=== PATIENT | male | born 1985 | race Caucasian/White ===

== ENCOUNTER 2016-06-07 22:45 | Emergency (ER) | payer SELFPAY ==
[~2016-06-07] VITALS: Ht 177.8 cm; Wt 72.6 kg
[~2016-06-07 22:45] MED LIST: ADDR10T PO; ALPR1TAB2 PO; CEPH500C PO; CLON1TAB36 PO; HYOS0.1217 PO; TRM50T PO
--- OUTSIDE RECORDS SUMMARY | 2016-06-07 22:51 | XMS REPORT ---
Author Author LAUREN CAMPOS [facility] eClinicalWorks Address Unknown Phone Unavailable Care Team Providers Care [employer]ting [employer] Name Role Phone LAUREN CAMPOS CP Unavailable Allergies, Adverse Reactions, Alerts Substance Reaction Event Type N.K.D.A. Info Not Available Non Drug Allergy Problems Problem Type Condition Code Onset Dates Condition Status Problem Family history of diabetes mellitus V18.0 Active Problem Dysthymic disorder 300.4 Active Problem Family history of other cardiovascular diseases V17.49 Active Problem Routine general medical examination at health care facility V70.0 Active Assessment Dental examination Z01.20 Active Medications Medication Code System Code Instructions Start Date End Date Status Dosage [place] [facility] [address]-66 5-325 MG Orally every 6 hrs October 13, 2015September 1 tablet as needed Clindamycin HCl [facility] [address]-56 150 MG Orally every 6 hrs October 13, 2015 Oct 20, 2015 1 capsule Procedures Procedure Coding System Code Date INTRAORL-PERIAPICAL 1 FILM 77726 CPT-4 D0220 October 13, 2015 Billing Notes on claim CPT-4 EC109 October 13, 2015 LTD ORAL EVALUATION - PROBLEM FOCUS CPT-4 D0140 October 13, 2015 Vital Signs Date/Time: October 13, 2015 Blood Pressure Diastolic 108 mmHg Blood Pressure Systolic 161 mmHg Height 70.5 in Results No Known Results Summary Purpose eClinicalWorks Submission
[2016-06-07] MEDS ORDERED: morphine INJ 10 MG/ML 1ML (SYR OR VIAL) IM STA (23:48)
[2016-06-07] MEDS ORDERED: TETANUS,DIPTH,PERTUSS P/F (BOOSTRIX) 0.5 ML VIAL IM STA (23:48)
[2016-06-07] MEDS ORDERED: RX-TRIMETH/SULFA. 160-800 MG (BACTRIM DS) TAB PPK#2 PO STA (23:49)
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
[2016-06-08] MEDS ORDERED: HYDR-3812 PO (00:05)
[2016-06-08] MEDS ORDERED: SULF1TAB35 PO (00:05)
[2016-06-08] MEDS ORDERED: RX-TRAMADOL 50 MG (ULTRAM) TAB PPK#4 PO STA (00:45)
[2016-06-08 01:06] VITALS: BP 124/79
--- NOTE | 2016-06-08 08:16 | Diagnostic Imaging Report ---
EXAMINATION: 3 views of the right hand. INDICATION: Injury to the fifth finger. FINDINGS: There is focal hypodensity along the tip of the fifth finger which could be related to the dressing or a 1 mm metallic foreign body deep to the skin or to the nail. There is otherwise no significant soft tissue or osseous abnormality. No fracture or dislocation. IMPRESSION: No fracture seen. 1 mm mild density at the tip of the fifth finger probably relates to a non metallic foreign body near the nail/skin or possibly outside the body. Correlate with physical exam. Dictated by: Dictated on workstation # [id number]
== END 2016-06-08 01:00 | disposition home or self-care (01) ==
LOC: EDUNIT# 22:45 → ER 22:47
DX: L03.113 Cellulitis of right upper limb (principal); S60.416A Abrasion of right little finger, initial encounter; Z23 Encounter for immunization; F17.210 Nicotine dependence, cigarettes, uncomplicated; X58.XXXA Exposure to other specified factors, initial encounter; Y99.8 Other external cause status
CPT/HCPCS: 73130; 90471; 90715; 96372

== ENCOUNTER 2016-06-08 17:26 | Emergency (ER) | payer SELFPAY ==
[~2016-06-08] VITALS: Ht 177.8 cm; Wt 74.8 kg
[~2016-06-08 17:26] MED LIST changes: +HYDR-3812 PO; +SULF1TAB35 PO
--- NOTE | 2016-06-08 17:44 | ED Suture Removal/Wound Check ---
Suture/Wound Re-check Suture Removal/Wound Recheck : Progress Patient presents to the emergency department as instructed by this examiner yesterday for wound check. Patient denies any new needs or complaints. Physical Exam Vital Signs Vital Sign - Last 12Hours 06/08/16 06/08/16 17:34 18:13 Temp 95.5 Pulse 78 Resp 16 B/P (MAP) 120/63 Pulse Ox 98 O2 Delivery Room Air Capillary Refill : General Appearance: WD/WN, no apparent distress Neurologic/Psychiatric: alert, normal mood/affect, oriented x 3 Skin: other (partial skin avulsion of the right volar 5th finger. Improved erythema and warmth noted. ) Skin Problem Location: upper extremities Skin Problem Character: other (partial skin avulsion of the right volar 5th finger. Improved erythema and warmth noted. ) Departure Communication Progress Notes Patient seen and evaluated. Plan for discharge to home. Impression Impression: Primary Impression: Cellulitis Qualified Codes: L03.011 - Cellulitis of right finger Additional Impression: Avulsion of skin of finger Qualified Codes: S61.209D - Unspecified open wound of unspecified finger without damage to nail, subsequent encounter Disposition: 01 HOME, SELF-CARE Condition: Improved Departure-Patient Inst. Decision time for Depature: 17:57 Referrals: NO,LOCAL PHYSICIAN (PCP/Family) Primary Care Physician Patient Instructions: Wound Care (DC) Add. Discharge Instructions: All discharge instructions reviewed with patient and/or family. Voiced understanding. Continue current medications. Elevate the right hand above the level of the heart as much as possible. Shower with antibacterial soap, pat dry , apply triple antibiotic ointment twice daily for 5 days and cover with a bandage. Continue current orders and medications as instructed last night in the emergency department. Return to the emergency department next Tuesday, Tuesday, or Tuesday for wound recheck. Follow-up with your family doctor for recheck if needed. Return to the emergency department for worsened symptoms or any other concerns. LIONEL SEWELL Jun 08, 2016 17:44
[2016-06-08 18:13] VITALS: BP 120/63
== END 2016-06-08 18:13 | disposition home or self-care (01) ==
LOC: EDUNIT# 17:26 → ER 17:27
DX: L03.011 Cellulitis of right finger (principal)

== ENCOUNTER 2016-08-04 23:22 | Emergency (ER) | payer SELFPAY ==
[~2016-08-04] VITALS: Ht 177.8 cm; Wt 74.8 kg
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
[2016-08-05] MEDS ORDERED: NAPROXEN 250 MG (NAPROSYN) TABLET PO ONE (00:30)
[2016-08-05] MEDS ORDERED: DICL50TA6 PO (00:35)
[2016-08-05 00:44] VITALS: BP 106/61
--- NOTE | 2016-08-05 08:11 | Diagnostic Imaging Report ---
Three views of the right knee. INDICATION: Injury FINDINGS: There is no fracture, dislocation or radiopaque foreign body. Moderate amount of suprapatellar effusion is seen, however. IMPRESSION: Moderate suprapatellar effusion. No fracture seen. Dictated by: Dictated on workstation # [id number]
== END 2016-08-05 00:55 | disposition home or self-care (01) ==
LOC: EDUNIT# 23:22 → ER 23:26
DX: S89.91XA Unspecified injury of right lower leg, initial encounter (principal); M25.461 Effusion, right knee; F17.210 Nicotine dependence, cigarettes, uncomplicated; V86.99XA Unspecified occupant of other special all-terrain or other off-road motor vehicle injured in nontraffic accident, initial encounter; Y99.8 Other external cause status
CPT/HCPCS: 73562; 99283

== ENCOUNTER 2017-10-08 20:12 | Emergency (ER) | payer SELFPAY ==
[~2017-10-08] VITALS: Ht 167.6 cm; Wt 74.8 kg
[~2017-10-08 20:12] MED LIST changes: +ACHD5005 PO; +DICL50TA6 PO; -HYDR-3812 PO
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
[2017-10-08] MEDS ORDERED: FLUORESCEIN (FLUOR-I-STRIPS) 1 MG STRP OU ONE (20:30)
[2017-10-08] MEDS ORDERED: BSS 15 ML IR ONE (20:30)
[2017-10-08] MEDS ORDERED: TETRACAINE 0.5% OPHTH SOLN 4 ML BTL (SINGLE DOSE ONLY) OU ONE (20:30)
[2017-10-08] MEDS ORDERED: RX-GENTAMICIN 0.3% OP OINT 3.5 GM TUBE OP STA (20:36)
--- NOTE | 2017-10-08 20:42 | ED EENT ---
History of Present Illness General Chief Complaint: Eye Problems Stated Complaint: SOMETHING IN L EYE Source: patient Exam Limitations: no limitations History of Present Illness Date Seen by Provider: Oct 08, 2017 Time Seen by Provider: 20:37 Initial Comments to ER with sensation of foreign body in the left eye. He was grinding on Tuesday10/05/17. He did not feel anything it his eye but he noticed some discomfort in the eye later that day. He does wear contact lenses and has taken them out since it started hurting. He follows with Dr. Stubbs, career development director. He's had corneal abrasions before but this feels different, he states tthe previous corneal abrasions never lasted this long. he's been using some of his grandmorphCARD's prescription eyedrops but doesn't know what the name of it was. He believes they were for pain control. Timing/Duration: abrupt Severity: moderate Location: eye (L) Allergies and Home Medications Allergies Coded Allergies: No Known Drug Allergies (Unverified , 08/16/09) Home Medications Diclofenac Sodium 50 Mg Tablet.dr, 50 MG PO Q6H PRN for KNEE PAIN Prescribed by: MELINDA REYES on 08/05/16 0035 Patient Home Medication List Home Medication List Reviewed: Yes Review of Systems Constitutional: see HPI Eyes: See HPI, Foreign Body Sensation, Inflammation, Pain Ears: No Symptoms Reported Nose: no symptoms reported Mouth: no symptoms reported Throat: no symptoms reported Respiratory: see HPI Cardiovascular: no symptoms reported Musculoskeletal: no symptoms reported Past Abqnqwu-Shgswx-Yaobyi Hx Patient Social History Alcohol Beverage of Choice: Beer Type Used: Cigarettes 2nd Hand Smoke Exposure: Yes Recent Foreign Travel: No Contact w/Someone Who Travel: No Recent Hopitalizations: No Immunizations Up To Date Tetanus Booster (TDap): More than 5yrs PED Vaccines UTD: Yes Seasonal Allergies Seasonal Allergies: No Past Medical History Surgeries: Yes (RIGHT HAND) Orthopedic Respiratory: No Cardiac: No Neurological: Yes Concussion Reproductive Disorders: No Gastrointestinal: No Musculoskeletal: Yes (RIGHT SHOULDER AC SEPARATION) Fractures Endocrine: No Cancer: No Psychosocial: Yes Anxiety Integumentary: No Blood Disorders: No Physical Exam Height, Weight, BMI Height: 5'10" Weight: 165lbs. oz. 74.327350nt; 23.67 BMI Method:Stated General Appearance: WD/WN, no apparent distress Eyes: right eye normal inspection; left eye conjunctival inflammation, left eye other (there is a small 2 mm area of dye uptake at about the 9:00 positionleft eye. No rust ring or foreign bodies identified.); bilateral eye PERRL, bilateral eye EOMI Nose: normal inspection; No active bleeding Mouth/Throat: normal mouth inspection; No mandibular swelling Neck: non-tender, full range of motion Respiratory: no respiratory distress, no accessory muscle use Progress/Results/Core Measures Results/Orders My Orders Orders - JORGE L GARCIA APRN Tetracaine 0.5% Ophth Aleida Sdv (Tetracai (10/08/17 20:30) Fluorescein Strips (Ycslv-C-Giakss) (10/08/17 20:30) Balanced Salt Irrigation Soln (Bss Irrig (10/08/17 20:30) Rx-Gentamicin Ophth Oint (Rx-Gentamicin (10/08/17 20:36) Medications Given in ED Current Medications Medications Dose Ordered Sig/Alexei Route Start Time Stop Time Status Last Admin Dose Admin Balanced Salt Solution 15 ml ONCE ONCE IR 10/08/17 20:30 10/08/17 20:31 DC 10/08/17 20:27 15 ML Fluorescein Sodium 1 mg ONCE ONCE OU 10/08/17 20:30 10/08/17 20:31 DC 10/08/17 20:27 1 MG Tetracaine HCl 4 ml ONCE ONCE OU 10/08/17 20:30 10/08/17 20:31 DC 10/08/17 20:27 4 ML Departure Impression Primary Impression: Corneal abrasion Disposition: HOME, SELF-CARE Condition: Stable Departure-Patient Inst. Decision time for Depature: 20:40 Referrals: CHRYSTAL STUBBS OD NO,LOCAL PHYSICIAN (PCP) Primary Care Physician Patient Instructions: Corneal Abrasion (DC), Corneal Ulcer (DC) Add. Discharge Instructions: 1. Follow-up with Dr. Stubbs. Call Tuesday for an appointment time. Return to ER for any worsening redness pain or other concerns.Apply antibiotic ointment 3 times daily for the next 3-4 days. Do not wear your contact lenses in the left eye until cleared to do so by Dr. Stubbs. All discharge instructions reviewed with patient and/or family. Voiced understanding. Images Eye 1 - Dye uptake (fluorescein) Copy Copies To 1: CHRYSTAL STUBBS OD, PETER J APRN Oct 08, 2017 20:42
[2017-10-08 20:53] VITALS: BP 98/82
== END 2017-10-08 20:57 | disposition home or self-care (01) ==
LOC: EDUNIT# 20:12 → ER 20:14
DX: S05.02XA Injury of conjunctiva and corneal abrasion without foreign body, left eye, initial encounter (principal); F41.9 Anxiety disorder, unspecified; Z77.22 Contact with and (suspected) exposure to environmental tobacco smoke (acute) (chronic); X58.XXXA Exposure to other specified factors, initial encounter
CPT/HCPCS: 99282

== ENCOUNTER 2018-01-16 15:01 | Emergency (ER) | payer SELFPAY ==
[~2018-01-16] VITALS: Ht 177.8 cm; Wt 72.6 kg
[2018-01-16] MEDS ORDERED: fentaNYL INJECTION 100 MCG/2 ML AMP ONE (15:08)
[2018-01-16] MEDS ORDERED: fentaNYL INJECTION 100 MCG/2 ML AMP IVP ONE (15:15)
[2018-01-16] MEDS ORDERED: ceFAZolin 2 GM IV Premixed 50 ML IV ONE (15:15)
[2018-01-16] MEDS ORDERED: TETANUS,DIPTH,PERTUSS P/F (BOOSTRIX) 0.5 ML VIAL IM ONE (15:15)
[2018-01-16 15:16] LABS: BASOPHILS % (AUTO) 0 % (0-10); EOSINOPHILS # (AUTO) 0.1 10^3/uL (0.0-0.3); EOSINOPHILS % (AUTO) 1 % (0-10); HEMATOCRIT 47 % (40-54); HEMOGLOBIN 16.8 G/DL (13.3-17.7); LYMPHOCYTES # (AUTO) 3.4 X 10^3 (1.0-4.0); LYMPHOCYTES % (AUTO) 31 % (12-44); MEAN CORPUSCULAR HEMOGLOBIN 32 PG (25-34); MEAN CORPUSCULAR HGB CONC 35 G/DL (32-36); MEAN CORPUSCULAR VOLUME 91 FL (80-99); MEAN PLATELET VOLUME 8.6 FL (7.4-10.4); MONOCYTES # (AUTO) 0.9 X 10^3 (0.0-1.0); MONOCYTES % (AUTO) 8 % (0-12); NEUTROPHILS # (AUTO) 6.6 X 10^3 (1.8-7.8); NEUTROPHILS % (AUTO) 59 % (42-75); PLATELET COUNT 314 10^3/uL (130-400); RED BLOOD COUNT 5.24 10^6/uL (4.35-5.85); RED CELL DISTRIBUTION WIDTH 11.9 % (10.0-14.5)
[2018-01-16 15:25] LABS: PROTHROMBIN TIME PATIENT 12.8 SEC (12.2-14.7)
--- NOTE | 2018-01-16 15:29 | Diagnostic Imaging Report ---
INDICATION: Injury to right leg. AP and lateral views of the right tibia and fibula performed. FINDINGS: No acute fracture or acute bony abnormality is seen. There is a soft tissue laceration over the distal leg. There is no radiopaque foreign body. IMPRESSION: Soft tissue laceration over distal leg anteriorly. No fracture or radiopaque foreign body. Dictated by: Dictated on workstation # [id number]
[2018-01-16 15:31] LABS: ALANINE AMINOTRANSFERASE 30 U/L (0-55); ALBUMIN 5.1 GM/DL (3.2-4.5); ALKALINE PHOSPHATASE 73 U/L (40-136); BILIRUBIN,TOTAL 0.9 MG/DL (0.1-1.0); BUN/CREATININE RATIO 10; CALCIUM 9.9 MG/DL (8.5-10.1); CARBON DIOXIDE 23 MMOL/L (21-32); CHLORIDE 103 MMOL/L (98-107); CREATININE SERUM 1.24 MG/DL (0.60-1.30); GFR ESTIMATED > 60; GLUCOSE 154 MG/DL (70-105); SODIUM 140 MMOL/L (135-145); TOTAL PROTEIN 7.9 GM/DL (6.4-8.2)
[2018-01-16] MEDS ORDERED: HYDROmorphone 2 MG/ML VIAL (DILAUDID) IV STA (15:40)
[2018-01-16] MEDS ORDERED: NS IV 1000 ML 1,000 ML IV ONE (16:34)
[2018-01-16] MEDS ORDERED: LIDOCAINE/EPI 2% 1:100,00 (XYLOCAINE) 20 ML VIAL INJ ONE (16:45)
--- NOTE | 2018-01-16 17:43 | ED General ---
General Chief Complaint: Trauma-Non Activation Stated Complaint: LEFT LEG LAC Nursing Triage Note: WOUND TO LEFT LOWER LEG FROM CHAINSAW Nursing Sepsis Screen: No Definite Risk Source of Information: Patient Exam Limitations: No Limitations History of Present Illness Date Seen by Provider: Jan 16, 2018 Time Seen by Provider: 15:03 Initial Comments This 32-year-old gentleman presents to the emergency room with significant soft tissue injury to the lateral left lower leg from a chainsaw that slipped. He presented directly to the emergency room after the injury. He denies any other injury. He is alert and oriented. There is no significant bleeding from the injury site. Allergies and Home Medications Allergies Coded Allergies: No Known Drug Allergies (Unverified , 08/16/09) Home Medications Diclofenac Sodium 50 Mg Tablet.dr, 50 MG PO Q6H PRN for KNEE PAIN Prescribed by: MELINDA REYES on 08/05/16 0035 Hydrocodone/Acetaminophen 1 Each Tablet, 1 EACH PO Q4-6HR PRN for PAIN-MODERATE Prescribed by: HYUN HARMAN on 01/16/18 175 Sulfamethoxazole/Trimethoprim 1 Each Tablet, 1 EACH PO BID Prescribed by: HYUN HARMAN on 01/16/18 175 Patient Home Medication List Home Medication List Reviewed: Yes Review of Systems Review of Systems Constitutional: no symptoms reported EENTM: no symptoms reported Respiratory: no symptoms reported Cardiovascular: no symptoms reported Gastrointestinal: no symptoms reported Genitourinary: no symptoms reported Musculoskeletal: see HPI Skin: see HPI Psychiatric/Neurological: No Symptoms Reported Hematologic/Lymphatic: No Symptoms Reported Immunological/Allergic: no symptoms reported Past Dyjkhxk-Hixevd-Prsted Hx Past Med/Social Hx: Reviewed and Corrections made Patient Social History Alcohol Use: Denies Use Number of Drinks Today: AA Alcohol Beverage of Choice: Beer Recreational Drug Use: Yes (SMOKES 1PPD) Smoking Status: Current Everyday Smoker Type Used: Cigarettes 2nd Hand Smoke Exposure: Yes Recent Foreign Travel: No Contact w/Someone Who Travel: No Recent Infectious Disease Expo: No Recent Hopitalizations: No Immunizations Up To Date Tetanus Booster (TDap): More than 5yrs PED Vaccines UTD: Yes Seasonal Allergies Seasonal Allergies: No Past Medical History Surgeries: Yes (RIGHT HAND) Orthopedic Respiratory: No Cardiac: No Neurological: Yes Concussion Reproductive Disorders: No Gastrointestinal: No Musculoskeletal: Yes (RIGHT SHOULDER AC SEPARATION) Fractures Endocrine: No HEENT: No Cancer: No Psychosocial: Yes Anxiety Integumentary: No Blood Disorders: No Physical Exam Vital Signs Vital Signs - First Documented 01/16/18 15:01 Temp 96.9 Pulse 68 Resp 20 B/P (MAP) 131/80 (97) Pulse Ox 100 Capillary Refill : Less Than 3 Seconds Height, Weight, BMI Height: 5'10.00" Weight: 160lbs. 0oz. 72.401367kq; 23.67 BMI Method:Stated General Appearance: WD/WN, Moderate Distress HEENT: PERRL/EOMI, Normal ENT Inspection Neck: Normal Inspection Respiratory: Lungs Clear, Normal Breath Sounds, No Accessory Muscle Use, No Respiratory Distress Cardiovascular: Regular Rate, Rhythm, No Edema, No Murmur Extremity: Normal Capillary Refill, Other (Large laceration extending through the fascia and into the muscle on the left lower lateral leg. Pedal pulses intact. Most of the sensation appears to be intact in the distal foot. 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 Adjacent skin was cleaned with alcohol. Wound was anesthetized with lidocaine with epinephrine. Wound and surrounding skin were cleansed with sterile saline and chlorhexidine. Wound was then irrigated thoroughly with 1 L of normal saline. Wound was explored and several particles of debris was removed with forceps prior to irrigation. Skin was then closed with suture. Wound was dressed with nonstick dressing and wrapped with sterile gauze. Leg was then placed in a step light boot. Patches were dispensed. Progress/Results/Core Measures Suspected Sepsis Recent Fever Within 48 Hours: No Infection Criteria Present: None New/Unexplained Altered Menta: No Sepsis Screen: No Definite Risk SIRS Temperature:96.9 Pulse: 68 Respiratory Rate: 20 Laboratory Tests 01/16/18 15:00: White Blood Count 11.0 Blood Pressure 131 /80 Mean: 97 Laboratory Tests 01/16/18 15:00: Creatinine 1.24, INR Comment 1.0, Platelet Count 314, Total Bilirubin 0.9 Results/Orders Lab Results Laboratory Tests Test 01/16/18 15:00 Range/Units White Blood Count 11.0 4.3-11.0 10^3/uL Red Blood Count 5.24 4.35-5.85 10^6/uL Hemoglobin 16.8 13.3-17.7 G/DL Hematocrit 47 40-54 % Mean Corpuscular Volume 91 80-99 FL Mean Corpuscular Hemoglobin 32 25-34 PG Mean Corpuscular Hemoglobin Concent 35 32-36 G/DL Red Cell Distribution Width 11.9 10.0-14.5 % Platelet Count 314 130-400 10^3/uL Mean Platelet Volume 8.6 7.4-10.4 FL Neutrophils (%) (Auto) 59 42-75 % Lymphocytes (%) (Auto) 31 12-44 % Monocytes (%) (Auto) 8 0-12 % Eosinophils (%) (Auto) 1 0-10 % Basophils (%) (Auto) 0 0-10 % Neutrophils # (Auto) 6.6 1.8-7.8 X 10^3 Lymphocytes # (Auto) 3.4 1.0-4.0 X 10^3 Monocytes # (Auto) 0.9 0.0-1.0 X 10^3 Eosinophils # (Auto) 0.1 0.0-0.3 10^3/uL Basophils # (Auto) 0.0 0.0-0.1 10^3/uL Prothrombin Time 12.8 12.2-14.7 SEC INR Comment 1.0 0.8-1.4 Activated Partial Thromboplast Time 24 24-35 SEC Sodium Level 140 135-145 MMOL/L Potassium Level 3.0 L 3.6-5.0 MMOL/L Chloride Level 103 98-107 MMOL/L Carbon Dioxide Level 23 21-32 MMOL/L Anion Gap 14 5-14 MMOL/L Blood Urea Nitrogen 12 7-18 MG/DL Creatinine 1.24 0.60-1.30 MG/DL Estimat Glomerular Filtration Rate > 60 BUN/Creatinine Ratio 10 Glucose Level 154 H 70-105 MG/DL Calcium Level 9.9 8.5-10.1 MG/DL Corrected Calcium 8.5-10.1 MG/DL Total Bilirubin 0.9 0.1-1.0 MG/DL Aspartate Amino Transf (AST/SGOT) 16 5-34 U/L Alanine Aminotransferase (ALT/SGPT) 30 0-55 U/L Alkaline Phosphatase 73 40-136 U/L Total Protein 7.9 6.4-8.2 GM/DL Albumin 5.1 H 3.2-4.5 GM/DL Serum Alcohol < 10 <10 MG/DL My Orders Orders - HYUN ARCHER MD Fentanyl Injection (Sublimaze Injection (01/16/18 15:15) Fentanyl Injection (Sublimaze Injection (01/16/18 15:08) Alcohol (01/16/18 15:10) Cbc With Automated Diff (01/16/18 15:10) Comprehensive Metabolic Panel (01/16/18 15:10) Protime With Inr (01/16/18 15:10) Partial Thromboplastin Time (01/16/18 15:10) Saline Lock/Iv-Start (01/16/18 15:10) Tibia/Fibula, Right, 2 Views (01/16/18 15:10) Dipht,Pertuss(Acell),Tet Adult (Boostrix (01/16/18 15:15) Cefazolin 2 Gm Iv Premixed (Ancef 2 Gm P (01/16/18 15:15) Hydromorphone Injection (Dilaudid Inject (01/16/18 15:40) Lidocaine/Epi 2% 1:100,000 (Xylocaine/Ep (01/16/18 16:45) Ns Iv 1000 Ml (Sodium Chloride 0.9%) (01/16/18 16:34) Medications Given in ED Vital Signs/I&O Capillary Refill : Less Than 3 Seconds Blood Pressure Mean: 97 Progress Note : Progress Note Wound was dressed with gauze moistened with sterile saline. Patient then received x-rays. No foreign bodies or fractures were identified. Patient was treated with 2 g of Ancef and a tetanus booster. Dr. Pardo was consulted and recommended repair with follow-up in the clinic tomorrow. Wound was thoroughly explored during repair. There appeared to be significant fascial and muscle injury but no laceration of tendons was clearly evident. Capacity to move toes and dorsiflex the foot was intact but reduced. Patient was initially treated with fentanyl for pain. Dilaudid was then added. See procedure note for more details. Diagnostic Imaging Diagonstic Imaging: Xray Plain Films/CT/US/NM/MRI: leg Comments NAME: ESTELA COTTRELL [facility] REC#: [id number] PT STATUS: REG ER : 1985 PHYSICIAN: HYUN ARCHER MD ADMIT DATE: 01/16/18/ER Signed Date of Exam: 01/16/18 TIBIA/FIBULA, RIGHT, 2 VIEWS INDICATION: Injury to right leg. AP and lateral views of the right tibia and fibula performed. FINDINGS: No acute fracture or acute bony abnormality is seen. There is a soft tissue laceration over the distal leg. There is no radiopaque foreign body. IMPRESSION: Soft tissue laceration over distal leg anteriorly. No fracture or radiopaque foreign body. Dictated by: Dictated on workstation # [id number] Dict: 01/16/18 1525 Trans: 01/16/18 1625 Interpreted by: SIXTO ROB MD Electronically signed by: SIXTO ROB MD 01/16/18 1625 Departure Impression Primary Impression: Laceration of left lower leg Qualified Codes: S81.812A - Laceration without foreign body, left lower leg, initial encounter Additional Impression: Muscle laceration Disposition: 01 HOME, SELF-CARE Condition: Improved Departure-Patient Inst. Referrals: LEWIS PARDO,LOCAL PHYSICIAN (PCP) Primary Care Physician Patient Instructions: Laceration Repair With Stitches (DC) Add. Discharge Instructions: Keep the boot on as much as possible. Do daily dressing changes for the first couple of days. Use the nonstick dressings provided to keep the wound from sticking to the dressing. Expect some clear yellow to bloody colored drainage. If the drainage becomes pussy, please return to care promptly. You may shower starting tomorrow. Do not submerge the wound in water. You may allow water to run over the wound but do not scrub the wound directly. You may take ibuprofen up to 600 mg every 6 hours as needed for pain. Add Tylenol (acetaminophen) up to 1000 mg every 6 hours as needed for additional pain relief. Use hydrocodone as prescribed for more severe pain. Call Dr. Pardo for follow-up. He would like to see you within 2 weeks. Complete your antibiotics as prescribed. Return to care promptly if you notice signs of infection such as increasing redness, red streaking, puslike drainage, increasing swelling, increasing pain, fever, etc. All discharge instructions reviewed with patient and/or family. Voiced understanding. Scripts Hydrocodone/Acetaminophen (Hydrocodone-Acetamin 5-325 mg) 1 Each Tablet 1 EACH PO Q4-6HR PRN for PAIN-MODERATE, #10 TAB Prov: HYUN ARCHER MD 01/16/18 Sulfamethoxazole/Trimethoprim (Bactrim Ds Tablet) 1 Each Tablet 1 EACH PO BID, #20 TAB Prov: HYUN ARCHER MD 01/16/18 HYUN ARCHER MD Jan 16, 2018 17:43
[2018-01-16] MEDS ORDERED: SULF1TAB35 PO (17:54)
[2018-01-16] MEDS ORDERED: HYDR-3812 PO (17:54)
[2018-01-16 18:00] VITALS: BP 131/80
--- OUTSIDE RECORDS SUMMARY | 2018-01-16 18:40 | XMS REPORT ---
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 Auto Transport Driver Name Role Phone ERNIE GASTELUM Unavailable PROBLEMS Type Condition ICD9-CM Code [id number] Code Onset Dates Condition Status SNOMED Code Problem Dysthymic disorder 300.4 Active 54949321 Problem Routine general medical examination at health care facility V70.0 Active 016634708 Problem Family history of other cardiovascular diseases V17.49 Active 673383490 Problem Family history of diabetes mellitus V18.0 Active 817028389 ALLERGIES No Known Allergies ENCOUNTERS Encounter Location Date Diagnosis [facility] [address] [id number] July, Dental caries K02.9 [facility] [id number] [place] [address] [id number] Jun, Dental examination Z01.20 [facility] [address] [id number] [address] Aug, Pain in right knee M25.561 [facility] [id number] [place] [address] [id number] Sep, Dental examination Z01.20 [facility] [id number] [place] [address] [id number] July, Dental examination V72.2 [facility] [id number] [place] [address] [id number] Jun, [facility] [id number] [place] [address] [phone]- [address] Jun, [facility] [id number] [place] [address] [id number] May, [facility] [id number] [place] [phone] May, [facility] [id number] [id number] May, [facility] [id number] [place] [address] Apr, [facility] [id number] [place] [phone]- [phone] Apr, [facility] [id number] [place] [address]40- [phone] Apr, [facility] [id number] [place] [phone]- [phone] Apr, [facility] [id number] [place] [phone]- [address] Apr, [facility] [id number] [place] [address] 6[address]11- [phone] Apr, [facility] [address] [address] Apr, [facility] [id number] [place] [address] Apr, [facility] [address] [address] Apr, IMMUNIZATIONS No Known Immunizations SOCIAL HISTORY Never Assessed REASON FOR VISIT oral-fractured tooth PLAN OF CARE Activity Details Follow Up 2 Weeks Reason:Extract # [address] Gastelum VITAL SIGNS Height 70.5 in 2017-07-08 Blood pressure systolic 118 mmHg 2017-07-08 Blood pressure diastolic 80 mmHg 2017-07-08 MEDICATIONS Medication Instructions Dosage Frequency Start Date End Date Duration Status Ativan 0.5 mg 1 tablet by Oral route 2 times per day Apr, Not-Taking Amoxicillin 500 MG Orally every 8 hrs 1 capsule 8h 7 days Active Remeron 15 mg 1 tablet by Oral route 1 time per day Apr, Not-Taking RESULTS No Results PROCEDURES Procedure Date Ordered Result Body Site LTD ORAL EVALUATION - PROBLEM FOCUS July 08, 2017 INTRAORL-PERIAPICAL 1 FILM 31389 July 08, 2017 BITEWINGS - TWO FILMS July 08, 2017 INTRAORL-PERIAPICAL EA ADD FILM July 08, 2017 INSTRUCTIONS MEDICATIONS ADMINISTERED No Known Medications
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
--- OUTSIDE RECORDS SUMMARY | 2018-01-16 18:40 | XMS REPORT ---
Author Author DALIAERNIE GARCIA [facility] Address Unknown Care Team Providers Care Refrigerator Repairman Name Role Phone ERNIE GASTELUM Unavailable PROBLEMS Type Condition ICD9-CM Code [id number] Code Onset Dates Condition Status SNOMED Code Problem Dysthymic disorder 300.4 Active 08483048 Problem Routine general medical examination at health care facility V70.0 Active 923177015 Problem Family history of other cardiovascular diseases V17.49 Active 086250162 Problem Family history of diabetes mellitus V18.0 Active 102989315 ALLERGIES No Known Allergies ENCOUNTERS Encounter Location Date Diagnosis [facility] [address] [id number] July, Dental caries K02.9 [facility] [id number] [place] [address] [id number] Jun, Dental examination Z01.20 [facility] [address] [id number]- [address] Aug, Pain in right knee M25.561 [facility] [id number] [place] [address] [id number] Sep, Dental examination Z01.20 [facility] [id number] [place] [address] [id number] July, Dental examination V72.2 [facility] [id number] [place] [address] [id number] Jun, [facility] [id number] [place] [address] [phone] [address] Jun, [facility] [id number] [place] [address] [id number] May, [facility] [id number] [place] [phone] May, [facility] [address] [facility] [id number] [id number] May, [facility] [address] [address] Apr, [facility] [address] [address] Apr, [facility] [address] [address] Apr, [facility] [address] [address] Apr, [facility] [address] [address] Apr, [facility] [id number] [address] Apr, [facility] [id number] [address] Apr, [facility] [address] [address] Apr, [facility] [address] [address] Apr, IMMUNIZATIONS No Known Immunizations SOCIAL HISTORY Never Assessed REASON FOR VISIT 1-2 wk te 45 min per dds PLAN OF CARE Activity Details Follow Up prn Reason:TE #14- 1 hour VITAL SIGNS Blood pressure systolic 132 mmHg 2017-07-26 Blood pressure diastolic 78 mmHg 2017-07-26 MEDICATIONS Medication Instructions Dosage Frequency Start Date End Date Duration Status Remeron 15 mg 1 tablet by Oral route 1 time per day Apr, Not-Taking Ativan 0.5 mg 1 tablet by Oral route 2 times per day Apr, Not-Taking Amoxicillin 500 MG Orally every 8 hrs 1 capsule 8h 7 days Active RESULTS No Results PROCEDURES Procedure Date Ordered Result Body Site EXTRAC ERUPTED TOOTH/EXPOSED ROOT July 26, 2017 INSTRUCTIONS MEDICATIONS ADMINISTERED No Known Medications
== END 2018-01-16 18:00 | disposition home or self-care (01) ==
LOC: EDUNIT# 15:01 → ER 15:03
DX: S81.812A Laceration without foreign body, left lower leg, initial encounter (principal); F41.9 Anxiety disorder, unspecified; F17.210 Nicotine dependence, cigarettes, uncomplicated; Z23 Encounter for immunization; W29.3XXA Contact with powered garden and outdoor hand tools and machinery, initial encounter
CPT/HCPCS: 36415; 73590; 80053; 80320; 85025; 85610; 85730; 90471; 90715; 96365; 96375

== ENCOUNTER 2018-06-05 12:30 | Emergency (ER) | payer SELFPAY ==
[~2018-06-05] VITALS: Ht 177.8 cm; Wt 74.8 kg
[~2018-06-05 12:30] MED LIST changes: +HYDR-3812 PO
--- NOTE | 2018-06-05 12:58 | ED Upper Extremity ---
General Chief Complaint: Upper Extremity Stated Complaint: WRIST INJ Nursing Triage Note: PT PRESENTS TO ER WITH COMPLAINT OF BILATERAL WRIST PAIN. PT STATES HE WAS ARRESTED TUESDAY NIGHT. STATES HE WAS LEFT IN HANDCUFFS FOR 8 HOURS. STATES HE NOW HAS BILATERAL WRIST PAIN AND SWELLING. STATES HE HAS RIGHT THUMB NUMBNESS. PT HAS ABRAISION ON BILATERAL INNER WRIST. PT ALSO HAS ABRAISION TO RIGHT HAND. PT STATES HE WANTS XRAYS FOR "DOCUMENTATION". Nursing Sepsis Screen: No Definite Risk Source: patient Exam Limitations: no limitations History of Present Illness Date Seen by Provider: Jun 05, 2018 Time Seen by Provider: 12:58 Initial Comments 32-year-old male who presents to the emergency room with complaints of bilateral wrist pain. He reports that 2 nights ago he was arrested by [place] [employer] and was left in the handcuffs for 8 hours. He has abrasions to bilateral wrists and mild swelling to wrists. Onset: other (2 days ago) Pain/Injury Location: bilateral wrist Modifying Factors: Worse With Movement Allergies and Home Medications Allergies Coded Allergies: No Known Drug Allergies (Unverified , 08/16/09) Home Medications Diclofenac Sodium 50 Mg Tablet.dr, 50 MG PO Q6H PRN for KNEE PAIN Prescribed by: MELINDA REYES on 08/05/16 0035 Hydrocodone/Acetaminophen 1 Each Tablet, 1 EACH PO Q4-6HR PRN for PAIN-MODERATE Prescribed by: HYUN HARMAN on 01/16/18 175 Sulfamethoxazole/Trimethoprim 1 Each Tablet, 1 EACH PO BID Prescribed by: HYUN HARMAN on 01/16/18 1754 Patient Home Medication List Home Medication List Reviewed: Yes Review of Systems Constitutional: see HPI; No chills, No fever Musculoskeletal: see HPI, joint pain (bilateral wrists) Skin: see HPI, other (abrasions to bilateral wrists) All Other Systems Reviewed Negative Unless Noted: Yes Past Tmwtugi-Qgcfxz-Rshtup Hx Past Med/Social Hx: Reviewed Nursing Past Med/Soc Hx Patient Social History Alcohol Use: Occasionally Uses Number of Drinks Today: AA Alcohol Beverage of Choice: Beer Recreational Drug Use: Yes (SMOKES 1PPD) Type Used: Cigarettes 2nd Hand Smoke Exposure: Yes Recent Foreign Travel: No Contact w/Someone Who Travel: No Recent Infectious Disease Expo: No Recent Hopitalizations: No Immunizations Up To Date Tetanus Booster (TDap): More than 5yrs PED Vaccines UTD: Yes Seasonal Allergies Seasonal Allergies: No Past Medical History Surgeries: Yes (RIGHT HAND) Orthopedic Respiratory: No Cardiac: No Neurological: Yes Concussion Reproductive Disorders: No Gastrointestinal: No Musculoskeletal: Yes (RIGHT SHOULDER AC SEPARATION) Fractures Endocrine: No HEENT: No Cancer: No Psychosocial: Yes Anxiety Integumentary: No Blood Disorders: No Family Medical History Reviewed Nursing Family Hx Physical Exam Vital Signs Vital Signs - First Documented 06/05/18 12:40 Temp 98.0 Pulse 98 Resp 20 B/P (MAP) 128/86 (100) Pulse Ox 100 O2 Delivery Room Air Capillary Refill : Less Than 3 Seconds Height, Weight, BMI Height: 5'10.00" Weight: 165lbs. 0oz. 74.181114ll; 23.67 BMI Method:Stated General Appearance: WD/WN, no apparent distress Cardiovascular: normal peripheral pulses, regular rate, rhythm, no edema, no gallop, no JVD, no murmur Respiratory: chest non-tender, lungs clear, normal breath sounds, no respiratory distress, no accessory muscle use Wrist: Yes normal ROM, Yes abrasions (bilateral), Yes pain (bilateral), Yes soft tissue tenderness (bilateral), Yes swelling (bilateral) Hand: normal inspection, non-tender, no evidence of injury, normal ROM, Bilateral Neurologic/Psychiatric: alert, normal mood/affect, oriented x 3 Skin: normal color, warm/dry Procedures/Interventions Suture Size: 4-0 Progress/Results/Core Measures Results/Orders My Orders Vital Signs/I&O Blood Pressure Mean: 100 Diagnostic Imaging Diagonstic Imaging: Xray Plain Films/CT/US/NM/MRI: other (wrist ) Comments NAME: ESTELA COTTRELL [facility] REC#: [id number] PT STATUS: DEP ER : 1985 PHYSICIAN: LUCIANA HITCHCOCK ADMIT DATE: 06/05/18/ER Signed Date of Exam: 06/05/18 WRIST,BILAT,3 VIEWS OR MORE INDICATION: Wrist pain and swelling. TIME OF EXAMINATION: 1:23 PM. TECHNIQUE: Multiple views of the bilateral wrists were obtained. FINDINGS: The carpal bones and metacarpals are intact bilaterally. No fractures are seen. IMPRESSION: Unremarkable bilateral wrist radiographs. Dictated by: Dictated on workstation # [id number] Dict: 06/05/18 1332 Trans: 06/05/18 1536 Interpreted by: LO TAYLOR MD Electronically signed by: LO TAYLOR MD 06/05/18 1536 Reviewed: Reviewed by Me Departure Impression Primary Impression: Contusion of wrist Additional Impression: bilateral contusion of wrists Disposition: HOME, SELF-CARE Condition: Stable/Unchanged Departure-Patient Inst. Decision time for Depature: 13:44 Referrals: NO,LOCAL PHYSICIAN (PCP/Family) Primary Care Physician Patient Instructions: Common Wrist Injuries (DC), Contusion (DC) Add. Discharge Instructions: Ice to the sore areas at 20 minute intervals. Ibuprofen and Tylenol as directed by the bottle for pain relief. Watch for signs of infection such as increased redness, swelling, drainage, pain at the sites of your abrasions. Follow-up with your primary care provider as needed. Return back to the emergency room for worsening symptoms or concerns as needed. All discharge instructions reviewed with patient and/or family. Voiced understanding. LUCIANA HITCHCOCK Jun 05, 2018 12:58
--- NOTE | 2018-06-05 13:40 | Diagnostic Imaging Report ---
INDICATION: Wrist pain and swelling. TIME OF EXAMINATION: 1:23 PM. TECHNIQUE: Multiple views of the bilateral wrists were obtained. FINDINGS: The carpal bones and metacarpals are intact bilaterally. No fractures are seen. IMPRESSION: Unremarkable bilateral wrist radiographs. Dictated by: Dictated on workstation # [id number]
[2018-06-05 13:54] VITALS: BP 128/86
== END 2018-06-05 13:53 | disposition home or self-care (01) ==
LOC: EDUNIT# 12:30 → ER 12:32
DX: S60.211A Contusion of right wrist, initial encounter (principal); S60.212A Contusion of left wrist, initial encounter; F41.9 Anxiety disorder, unspecified; F17.210 Nicotine dependence, cigarettes, uncomplicated; Z98.890 Other specified postprocedural states; X58.XXXA Exposure to other specified factors, initial encounter

== ENCOUNTER 2018-12-07 10:19 | Emergency (ER) | payer SELFPAY ==
[~2018-12-07] VITALS: Ht 177.8 cm; Wt 72.7 kg
[2018-12-07] MEDS ORDERED: TETRACAINE 0.5% OPHTH SOLN 4 ML BTL (SINGLE DOSE ONLY) OU ONE (10:45)
[2018-12-07] MEDS ORDERED: BSS 15 ML IR ONE (10:45)
[2018-12-07] MEDS ORDERED: FLUORESCEIN (FLUOR-I-STRIPS) 1 MG STRP OU ONE (10:45)
[2018-12-07] MEDS ORDERED: VIGAMOX OP (10:50)
--- NOTE | 2018-12-07 10:50 | ED EENT ---
History of Present Illness General Chief Complaint: Eye Problems Stated Complaint: EYE PAIN Nursing Triage Note: PT REPORTS EYE PAIN THAT STARTED ON TUESDAY. 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 PT WEARS CONTACTS AND STATES THAT HE FELL ASLEEP WITH THEM IN LAST NIGHT AND PAIN IS UNBEARABLE THIS AM. DENIES KNOWING ANYTHING HIT EYE. 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 Does not have any known foreig n body in his eye. He does wear contacts and has fallen and then last night. He has photophobia on the right, awakens with eyes matted shut occasionally. Eye doctor is Dr. Yeung/Anson. Timing/Duration: abrupt Severity: moderate Location: eye (R) Associated Symptoms: denies symptoms Allergies and Home Medications Allergies Coded Allergies: No Known Drug Allergies (Unverified , 12/07/18) Home Medications Diclofenac Sodium 50 Mg Tablet.dr, 50 MG PO Q6H PRN for KNEE PAIN Prescribed by: MELINDA REYES on 08/05/16 0035 Hydrocodone/Acetaminophen 1 Each Tablet, 1 EACH PO Q4-6HR PRN for PAIN-MODERATE Prescribed by: HYUN HARMAN on 01/16/18 175 Moxifloxacin HCl 3 Ml Soln, 5 DROPS OP TID Prescribed by: JORGE L GARCIA on 12/07/18 1050 Sulfamethoxazole/Trimethoprim 1 Each Tablet, 1 EACH PO BID Prescribed by: HYUN HARMAN on 01/16/18 1754 Patient Home Medication List Home Medication List Reviewed: Yes Review of Systems Review of Systems Constitutional: see HPI Eyes: See HPI Ears: No Symptoms Reported Nose: no symptoms reported Mouth: no symptoms reported Throat: no symptoms reported Respiratory: no symptoms reported Cardiovascular: no symptoms reported Musculoskeletal: no symptoms reported Skin: no symptoms reported Neurological: No Symptoms Reported Past Btdedtx-Qttcpa-Ozgrmi Hx Patient Social History Alcohol Use: Rarely Uses Number of Drinks Today: AA Alcohol Beverage of Choice: Beer Recreational Drug Use: No Type Used: Cigarettes 2nd Hand Smoke Exposure: Yes Recent Foreign Travel: No Contact w/Someone Who Travel: No Recent Infectious Disease Expo: No Recent Hopitalizations: No Physical Abuse: No Sexual Abuse: No Immunizations Up To Date Tetanus Booster (TDap): More than 5yrs PED Vaccines UTD: Yes Seasonal Allergies Seasonal Allergies: No Past Medical History Surgeries: Yes (RIGHT HAND) Orthopedic Respiratory: No Cardiac: No Neurological: Yes Concussion Reproductive Disorders: No Genitourinary: No Gastrointestinal: No Musculoskeletal: Yes (RIGHT SHOULDER AC SEPARATION) Fractures Endocrine: No HEENT: No Cancer: No Psychosocial: Yes Anxiety Integumentary: No Blood Disorders: No Physical Exam Vital Signs Vital Signs - First Documented 12/07/18 10:24 Temp 35.9 Pulse 81 Resp 12 B/P (MAP) 125/82 (96) Pulse Ox 99 Height, Weight, BMI Height: 5'10.00" Weight: 165lbs. 0oz. 74.482548oo; 22.00 BMI Method:Stated General Appearance: WD/WN, no apparent distress Eyes: right eye other (pleural injection around the limbus, photophobia, no corneal ulcers or abrasions are seen.); bilateral eye normal inspection, bilateral eye PERRL, bilateral eye EOMI Ears: bilateral ear auricle normal, bilateral ear canal normal, bilateral ear TM normal Nose: normal inspection Neck: non-tender, full range of motion Respiratory: no respiratory distress, no accessory muscle use Neurologic/Psychiatric: alert, normal mood/affect, oriented x 3 Procedures/Interventions Suture Size: 4-0 Progress/Results/Core Measures Results/Orders My Orders Orders - JORGE L GARCIA MIXER HELPER Tetracaine 0.5% Ophth Aleida Sdv (Tetracai (12/07/18 10:45) Fluorescein Strips (Bsvvt-I-Ixczhz) (12/07/18 10:45) Balanced Salt Irrigation Soln (Bss Irrig (12/07/18 10:45) Medications Given in ED Current Medications Medications Dose Ordered Sig/Alexei Route Start Time Stop Time Status Last Admin Dose Admin Balanced Salt Solution 15 ml ONCE ONCE IR 12/07/18 10:45 12/07/18 10:46 DC 12/07/18 10:40 15 ML Fluorescein Sodium 1 mg ONCE ONCE OU 12/07/18 10:45 12/07/18 10:46 DC 12/07/18 10:40 1 MG Tetracaine HCl 4 ml ONCE ONCE OU 12/07/18 10:45 12/07/18 10:46 DC 12/07/18 10:40 4 ML Vital Signs/I&O 12/07/18 10:24 Temp 35.9 Pulse 81 Resp 12 B/P (MAP) 125/82 (96) Pulse Ox 99 Blood Pressure Mean: 96 Departure Communication (Admissions) Discussed with Dr Griggs, agrees with plan of care. Impression Primary Impression: Conjunctivitis Qualified Codes: H10.31 - Unspecified acute conjunctivitis, right eye Disposition: HOME, SELF-CARE Condition: Stable Departure-Patient Inst. Decision time for Depature: 10:48 Referrals: NO,LOCAL PHYSICIAN (PCP/Family) Primary Care Physician Patient Instructions: Conjunctivitis ([place]) (DC) Add. Discharge Instructions: 1. Follow-up with Dr. Griggs tomorrow at 9am. 2. Do not wear contacts in the right eye until directed otherwise by Dr Griggs. 3. The antibiotics prescribed can be expensive. IF they are too expensive have the pharmacy call us and we can exchange it for something cheaper (whatever the pharmacist says is cheaper). All discharge instructions reviewed with patient and/or family. Voiced understanding. Scripts Moxifloxacin HCl (Vigamox) 3 Ml Soln 5 DROPS OP TID for 7 Days, #1 EA Prov: JORGE L GARCIA APRN 12/07/18 JORGE L GARCIA MIXER HELPER Dec 07, 2018 10:50
[2018-12-07 11:19] VITALS: BP 125/82
== END 2018-12-07 11:19 | disposition home or self-care (01) ==
LOC: EDUNIT# 10:19 → ER 10:20
DX: H10.31 Unspecified acute conjunctivitis, right eye (principal); F41.9 Anxiety disorder, unspecified; Z77.22 Contact with and (suspected) exposure to environmental tobacco smoke (acute) (chronic); Z87.828 Personal history of other (healed) physical injury and trauma
CPT/HCPCS: 99284

== ENCOUNTER 2019-01-11 12:59 | Emergency (ER) | payer SELFPAY ==
[~2019-01-11] VITALS: Ht 170.8 cm; Wt 72.6 kg
[~2019-01-11 12:59] MED LIST changes: +VIGAMOX OP
--- NOTE | 2019-01-11 13:42 | ED EENT ---
History of Present Illness General Chief Complaint: Dental Problems/Pain Stated Complaint: DENTAL PAIN/SWELLING Nursing Triage Note: TO ED C/O DENTAL PAIN AND SWELLING IN R JAW AREA Source: patient Exam Limitations: no limitations History of Present Illness Date Seen by Provider: Jan 11, 2019 Time Seen by Provider: 13:31 Initial Comments Patient resents to ER by private conveyance with chief complaint one day right upper incisor pain with soft tissue swelling. No purulence. No fevers chills nausea vomiting. He's used Tylenol unsuccessfully. He tried some amoxicillin left over 2 doses and is still having swelling and pain Allergies and Home Medications Allergies Coded Allergies: No Known Drug Allergies (Unverified , 12/07/18) Patient Home Medication List Home Medication List Reviewed: Yes Review of Systems Review of Systems Constitutional: No chills, No fever Eyes: Denies Blindness, Denies Blurred Vision Ears: Denies Dizziness, Denies Pain Nose: denies clots, denies congestion Mouth: see HPI Throat: denies pain, denies swelling Past Zafehfh-Zrllpg-Dthzfc Hx Patient Social History Alcohol Use: Denies Use Number of Drinks Today: AA Alcohol Beverage of Choice: Beer Recreational Drug Use: Yes (SMOKES 1PPD) Smoking Status: Current Everyday Smoker Type Used: Cigarettes 2nd Hand Smoke Exposure: Yes Recent Foreign Travel: No Contact w/Someone Who Travel: No Recent Infectious Disease Expo: No Recent Hopitalizations: No Immunizations Up To Date Tetanus Booster (TDap): More than 5yrs PED Vaccines UTD: Yes Seasonal Allergies Seasonal Allergies: No Past Medical History Surgeries: Yes (RIGHT HAND) Orthopedic Respiratory: No Cardiac: No Neurological: Yes Concussion Reproductive Disorders: No Genitourinary: No Gastrointestinal: No Musculoskeletal: Yes (RIGHT SHOULDER AC SEPARATION) Fractures Endocrine: No HEENT: No Cancer: No Psychosocial: Yes Anxiety Integumentary: No Blood Disorders: No Physical Exam Vital Signs Vital Signs - First Documented 01/11/19 13:13 Temp 37.0 Pulse 88 Resp 18 B/P (MAP) 111/43 (65) Pulse Ox 100 O2 Delivery Room Air Height, Weight, BMI Height: 5'10.00" Weight: 165lbs. 0oz. 74.068422iq; 24.00 BMI Method:Stated General Appearance: WD/WN, mild distress Eyes: bilateral eye normal inspection, bilateral eye PERRL, bilateral eye EOMI Ears: bilateral ear auricle normal, bilateral ear canal normal Nose: normal inspection; No active bleeding Mouth/Throat: other (swelling of the soft tissues over the right maxilla anteriorly. Right upper incisor tender to palpation without any pointing, purulence or fluctuance palpable) Neck: non-tender, full range of motion, supple, normal inspection Cardiovascular: normal peripheral pulses, regular rate, rhythm Procedures/Interventions Suture Size: 4-0 Progress/Results/Core Measures Results/Orders Vital Signs/I&O 01/11/19 13:13 Temp 37.0 Pulse 88 Resp 18 B/P (MAP) 111/43 (65) Pulse Ox 100 O2 Delivery Room Air Blood Pressure Mean: 65 Progress Progress Note : Time: 13:30 Progress Note Toradol and viscous lidocaine Departure Impression Primary Impression: Dental abscess Disposition: HOME, SELF-CARE Condition: Stable Departure-Patient Inst. Decision time for Depature: 13:43 Referrals: NO,LOCAL PHYSICIAN (PCP/Family) Primary Care Physician Patient Instructions: Tooth Abscess (DC) Add. Discharge Instructions: Warm compresses, salt water rinses. Viscous lidocaine 1 g every 4 hours over the tooth that causes pain as necessary. Tylenol 1000 mg every 8 hours as needed for pain. Ibuprofen 800 mg every 8 hours as needed for pain. Amoxicillin one capsule 3 times a day for the next week. Follow-up with a dentist. All discharge instructions reviewed with patient and/or family. Voiced understanding. Scripts Amoxicillin (Amoxicillin) 500 Mg Capsule 500 MG PO TID, #21 CAP 0 Refills Prov: SARAH SINHA 01/11/19 SARAH SINHA Jan 11, 2019 13:42
[2019-01-11] MEDS ORDERED: LIDOCAINE 2% VISCOUS 15 ML UDC PO ONE (13:45)
[2019-01-11] MEDS ORDERED: KETOROLAC 60 MG/2 ML VIAL IM ONE (13:45)
[2019-01-11] MEDS ORDERED: AMOX500C2 PO (13:46)
[2019-01-11 14:15] VITALS: BP 111/43
== END 2019-01-11 14:15 | disposition home or self-care (01) ==
LOC: EDUNIT# 12:59 → ER 13:00
DX: K04.7 Periapical abscess without sinus (principal); F41.9 Anxiety disorder, unspecified; F17.210 Nicotine dependence, cigarettes, uncomplicated; Z87.820 Personal history of traumatic brain injury
CPT/HCPCS: 96372; 99284

== ENCOUNTER 2019-02-05 16:52 | Emergency (ER) | payer SELFPAY ==
[~2019-02-05] VITALS: Ht 177.8 cm; Wt 74.3 kg
[~2019-02-05 16:52] MED LIST changes: +AMOX500C2 PO
--- NOTE | 2019-02-05 17:36 | ED Trauma-Multisystem ---
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 PAIN 12/28. ABRAISION TO RIGHT KNUCKLE, BRUSING TO RIGHT FLANK Source of Information: Patient Exam Limitations: No Limitations History of Present Illness Date Seen by Provider: Feb 05, 2019 Time Seen by Provider: 17:20 Initial Comments 33-year-old male patient who presents to the emergency room with complaints of right-sided rib pain after he stepped off the second row of a ladder falling backwards into a hole that was coming onto the floor. Patient reports that this happened about 1600. Patient was able to ambulate to the exam room without difficulty and independently. Patient denies hitting his head or loss of consciousness. Patient reports that the pain is exacerbated with deep breathing, coughing, and turning from side to side. Patient reports that the pain is alleviated when he does not move. Last tetanus within 2 years. Occurred: This Afternoon Severity: Mild Pain/Injury Location: Other (right side) Method of Injury: Fall Modifying Factors: Immobilization; No Movement; Rest Loss of Consciousness: No Loss of Consciousness Associated Symptoms (Fall): No Chest Pain, No Confusion, No Dizziness, No Headache, No Lightheadedness, No Muscle Spasms, No Nausea/Vomiting, No Neck Pain, No Ringing in Ears, No Seizures, No Shortness of Air, No Slurred Speech, No Trouble Walking, No Vision Changes Allergies and Home Medications Allergies Coded Allergies: No Known Drug Allergies (Unverified , 12/07/18) Home Medications Amoxicillin 500 Mg Capsule, 500 MG PO TID Prescribed by: SARAH SINHA on 01/11/19 1346 Hydrocodone/Acetaminophen 1 Each Tablet, 1 EACH PO Q6H PRN for PAIN-MODERATE Prescribed by: AGUSTIN LIVINGSTON on 02/05/19 1851 Patient Home Medication List Home Medication List Reviewed: Yes Review of Systems Review of Systems Constitutional: no symptoms reported, see HPI Eyes: No Symptoms Reported, See HPI Ears: No Symptoms Reported, See HPI Nose: No Symptoms Reported, See HPI Mouth: No Symptoms Reported, See HPI Throat: No Symptoms to Report, See HPI Respiratory: see HPI, other (pain with coughing and deep breathing.) Cardiovascular: No Symptoms Reported, See HPI Gastrointestinal: no symptoms reported, see HPI Genitourinary: no symptoms reported, see HPI Musculoskeletal: No back pain, No gout, No joint pain, No neck pain Skin: other (abrasions to right side and right flank) Psychiatric/Neurological: No Symptoms Reported, See HPI Past Dsykjkk-Ryhkdx-Aipxwc Hx Patient Social History Alcohol Use: Occasionally Uses Number of Drinks Today: AA Alcohol Beverage of Choice: Beer Recreational Drug Use: No Type Used: Cigarettes 2nd Hand Smoke Exposure: Yes Recent Foreign Travel: No Contact w/Someone Who Travel: No Recent Infectious Disease Expo: No Recent Hopitalizations: No Physical Abuse: No Sexual Abuse: No Mistreated: No Fear: No Immunizations Up To Date Tetanus Booster (TDap): Less than 5yrs PED Vaccines UTD: Yes Seasonal Allergies Seasonal Allergies: No Past Medical History Surgeries: Yes (RIGHT HAND) Orthopedic Respiratory: No Cardiac: No Neurological: Yes Concussion Reproductive Disorders: No Genitourinary: No Gastrointestinal: No Musculoskeletal: Yes (RIGHT SHOULDER AC SEPARATION) Fractures Endocrine: No HEENT: No Cancer: No Psychosocial: Yes ADD/ADHD, Anxiety Integumentary: No Blood Disorders: No Physical Exam Vital Signs Vital Signs - First Documented 02/05/19 02/05/19 17:05 19:06 Temp 36.7 Pulse 74 Resp 18 B/P (MAP) 120/72 (88) Pulse Ox 100 O2 Delivery Room Air Height, Weight, BMI Height: 5'10.00" Weight: 165lbs. 0oz. 74.993014mq; 23.00 BMI Method:Stated General Appearance: No Apparent Distress, WD/WN Head: No Evidence of Injury; No Active Bleeding, No Monteiro's Sign, No Contusions, No Ecchymosis, No Flap, No Lacerations, No Raccoon Eyes, No Swelling, No Tenderness Eyes: Bilateral Eye Normal Inspection, Bilateral Eye PERRL Ears, Nose, Throat: Hearing Grossly Normal, No Evidence of ENT Injury, No Dental Injury Neck: Full Range of Motion, Normal Inspection, Non Tender, Supple Cardiovascular: Regular Rate, Rhythm, No Edema, No Gallop, No JVD, No Murmur, Normal Peripheral Pulses Respiratory: Lungs Clear, Normal Breath Sounds, No Accessory Muscle Use, No Respiratory Distress, Other (Tender to palpation right lower anterior ribs) Gastrointestinal: Normal Bowel Sounds, No Organomegaly, No Pulsatile Mass, Non Tender, Soft Rectal: Deferred Back: Normal Inspection, No CVA Tenderness, No Vertebral Tenderness Extremity: Normal Capillary Refill, Normal Inspection, Normal Range of Motion, Non Tender, No Calf Tenderness Neurologic/Psychiatric: Alert, Oriented x3, No Motor/Sensory Deficits, Normal Mood/Affect, duplication specialist II-XII Norm as Tested Skin: Normal Color, Warm/Dry, Other (abrasions noted to right side and right flank) Lymphatic: No Adenopathy [place] Coma Score Best Eye Response ([place]): (4) Open Spontaneously Best Verbal Response ([place]): (5) Oriented Best Motor Response ([place]): (6) Obeys Commands [place] Total: 15 Procedures/Interventions Suture Size: 4-0 Progress/Results/Core Measures Results/Orders My Orders Orders - AGUSTIN LIVINGSTON Chest Pa/Lat (2 View) (02/05/19 17:25) Hydrocodone/Apap 5/325 Tablet (Lortab 5 (02/05/19 17:45) Fentanyl Injection (Sublimaze Injection (02/05/19 19:00) Medications Given in ED Current Medications Medications Dose Ordered Sig/Alexei Route Start Time Stop Time Status Last Admin Dose Admin Acetaminophen/ Hydrocodone Bitart 1 tab ONCE ONCE PO 02/05/19 17:45 02/05/19 17:46 DC 02/05/19 17:47 1 TAB Fentanyl Citrate 50 mcg ONCE ONCE IM 02/05/19 19:00 02/05/19 19:01 DC 02/05/19 19:06 50 MCG Vital Signs/I&O 02/05/19 02/05/19 02/05/19 17:05 19:06 19:32 Temp 36.7 36.7 Pulse 74 74 Resp 18 18 B/P (MAP) 120/72 (88) 125/78 (88) Pulse Ox 100 100 O2 Delivery Room Air Room Air Blood Pressure Mean: 88 POS Progress Progress Note : Time: 17:20 Progress Note Patient seen and evaluated, will obtain chest x-ray and rib films. Hydrocodone/APAP 5/325 mg for pain. Abrasions cleaned with sterile saline and hibiclens. 1814 RT here to instruct patient about IS. Patient able to get 2,200. But increased right rib pain, Fentanyl 25 mcg IM for pain. 1835 charge instructions and return precautions reviewed. All questions answered Diagnostic Imaging Diagonstic Imaging: Xray Plain Films/CT/US/NM/MRI: other (Right Ribs) Comments NAME: ESTELA COTTRELL [facility] REC#: [id number] PT STATUS: REG ER : 1985 PHYSICIAN: SARAH SINHA MD ADMIT DATE: 02/05/19/ER Draft POSDate of Exam:02/05/19 RIBS, RIGHT 2-3 VIEWS INDICATION: Right chest pain. COMPARISON: None. FINDINGS: Three views of the right ribs demonstrate nondisplaced fractures of the tenth and eleventh ribs. There is no pneumothorax or effusion. IMPRESSION: Nondisplaced tenth and eleventh right ribs fracture. No pneumothorax or effusion. Dictated on workstation # [id number] Dict: 02/05/191812 Trans: 02/05/191819 TS [id number] Interpreted by: ANA ROY Electronically signed by: Reviewed: Reviewed by Me Diagonstic Imaging: Xray Plain Films/CT/US/NM/MRI: chest Comments NAME: ESTELA COTTRELL [facility] REC#: [id number] PT STATUS: REG ER : 1985 PHYSICIAN: AGUSTIN LIVINGSTON ADMIT DATE: 02/05/19/ER Draft POSDate of Exam:02/05/19 CHEST PA/LAT (2 VIEW) INDICATION: Fall, chest pain. COMPARISON: None. FINDINGS: Frontal and lateral views of the chest demonstrate clear lungs bilaterally. The heart is normal. There is no pneumothorax. Osseous structures are age-appropriate. IMPRESSION: Negative chest. Dictated on workstation # [id number] Dict: 02/05/191811 Trans: 02/05/191814 TS [id number] Interpreted by: ANA ROY Electronically signed by: Reviewed: Reviewed by Me Departure Impression Primary Impression: Right rib fracture Qualified Codes: S22.41XA - Multiple fractures of ribs, right side, initial encounter for closed fracture Additional Impressions: Abrasion Fall (on) (from) unspecified stairs and steps, initial encounter Disposition: 01 HOME, SELF-CARE Condition: Improved Departure-Patient Inst. Decision time for Depature: 18:35 Referrals: NO,LOCAL PHYSICIAN (PCP) Primary Care Physician Patient Instructions: Rib Fracture (DC), Skin Abrasions (DC) Add. Discharge Instructions: You have 2 nondisplaced rib fractures on the right than the 10th and 11th ribs. Alternate heat and ice to ribs, over area of tenderness. Apply triple antbiotic ointment to skin abrasions to right back. Using incentive spirometer at least 10 times every 2 hours while awake. You may take ibuprofen 600 mg every 8 hours Take your pain prescription as ordered. Follow-up with your primary care provider for recheck in 3-4 days and if additional pain management is needed. As mentioned previously you are going to be at increased risk for respiratory infection due to the pain with the rib fractures, continue to take deep breaths, turn and cough every 2 hours and utilize the incentive spirometer to help prevent these complications. Return to the emergency department for new, urgent health care problems. All discharge instructions reviewed with patient and/or family. Voiced understanding. Scripts Hydrocodone/Acetaminophen (Hydrocodon-Acetaminoph 7.5-300) 1 Each Tablet 1 EACH PO Q6H PRN for PAIN-MODERATE for 3 Days, #12 TAB 0 Refills Prov: AGUSTIN LIVINGSTON 02/05/19 AGUSTIN LIVINGSTON Feb 05, 2019 17:36 POS
[2019-02-05] MEDS ORDERED: HYDROcodone/APAP 5 MG/325 MG (LORTAB) TAB PO ONE (17:45)
--- NOTE | 2019-02-05 18:15 | Diagnostic Imaging Report ---
INDICATION: Fall, chest pain. COMPARISON: None. FINDINGS: Frontal and lateral views of the chest demonstrate clear lungs bilaterally. The heart is normal. There is no pneumothorax. Osseous structures are age-appropriate. IMPRESSION: Negative chest. Dictated by: Dictated on workstation # [id number]
--- NOTE | 2019-02-05 18:21 | Diagnostic Imaging Report ---
INDICATION: Right chest pain. COMPARISON: None. FINDINGS: Three views of the right ribs demonstrate nondisplaced fractures of the tenth and eleventh ribs. There is no pneumothorax or effusion. IMPRESSION: Nondisplaced tenth and eleventh right ribs fracture. No pneumothorax or effusion. Dictated by: Dictated on workstation # [id number]
[2019-02-05] MEDS ORDERED: HYDR-3063 PO (18:51)
[2019-02-05] MEDS ORDERED: fentaNYL INJECTION 100 MCG/2 ML AMP IM ONE (19:00)
[2019-02-05 19:06] VITALS: BP 125/78
== END 2019-02-05 19:06 | disposition home or self-care (01) ==
LOC: EDUNIT# 16:52 → ER 16:53
DX: S22.41XA Multiple fractures of ribs, right side, initial encounter for closed fracture (principal); S30.811A Abrasion of abdominal wall, initial encounter; F90.9 Attention-deficit hyperactivity disorder, unspecified type; F41.9 Anxiety disorder, unspecified; R40.2142 Coma scale, eyes open, spontaneous, at arrival to emergency department; R40.2252 Coma scale, best verbal response, oriented, at arrival to emergency department; R40.2362 Coma scale, best motor response, obeys commands, at arrival to emergency department; Z77.22 Contact with and (suspected) exposure to environmental tobacco smoke (acute) (chronic); Z87.820 Personal history of traumatic brain injury; W10.9XXA Fall (on) (from) unspecified stairs and steps, initial encounter; Y92.59 Other trade areas as the place of occurrence of the external cause
CPT/HCPCS: 71046; 71100; 94664

== ENCOUNTER 2019-04-08 11:34 | Emergency (ER) | payer SELFPAY ==
[~2019-04-08] VITALS: Ht 177 cm; Wt 72.3 kg
[~2019-04-08 11:34] MED LIST changes: +HYDR-3063 PO
--- NOTE | 2019-04-08 11:57 | NUR ---
TO ROOM NO CHANGE FROM TRIAGE.
[2019-04-08] MEDS ORDERED: KETOROLAC 30 MG/ML VIAL IVP STA (12:07)
[2019-04-08] MEDS ORDERED: NS IV 1000 ML 1,000 ML IV SCH (12:07)
--- NOTE | 2019-04-08 12:46 | Diagnostic Imaging Report ---
PROCEDURE: CT head and maxillofacial without contrast. TECHNIQUE: Multiple contiguous axial images were obtained through the head and facial bones without the use of intravenous contrast. Auto Exposure Controls were utilized during the CT exam to meet ALARA standards for radiation dose reduction. INDICATION: Right facial swelling. COMPARISON: None available. FINDINGS: CT HEAD: No hyperdense hemorrhage or space-occupying mass. No hydrocephalus or midline shift. Shah-white matter differentiation is well-preserved. No acute calvarial abnormality. Paranasal sinuses and mastoid air cells are clear. CT FACE: No fracture of the mid face or mandible. Paranasal sinuses and mastoid air cells are clear. No dental caries. Periapical lucencies involving the bilateral lateral incisors could represent periodontal disease versus benign cystic change. Mild asymmetric subcutaneous edema overlying the right maxillary alveolar ridge. No underlying periodontal disease. IMPRESSION: 1. No acute intracranial process. 2. Periapical lucencies involving the bilateral lateral maxillary incisors may represent periodontal disease. There is overlying soft tissue swelling, but there is no drainable abscess present. These changes are asymmetric to the right and may explain the patient's right-sided facial swelling. Dictated by: Dictated on workstation # [id number]
[2019-04-08 12:53] LABS: BASOPHILS % (AUTO) 0 % (0-10); EOSINOPHILS % (AUTO) 0 % (0-10); HEMATOCRIT 45 % (40-54); HEMOGLOBIN 15.7 G/DL (13.3-17.7); LYMPHOCYTES # (AUTO) 1.4 X 10^3 (1.0-4.0); LYMPHOCYTES % (AUTO) 11 % (12-44); MEAN CORPUSCULAR HEMOGLOBIN 33 PG (25-34); MEAN CORPUSCULAR HGB CONC 35 G/DL (32-36); MEAN CORPUSCULAR VOLUME 93 FL (80-99); MEAN PLATELET VOLUME 8.7 FL (7.4-10.4); MONOCYTES # (AUTO) 0.8 X 10^3 (0.0-1.0); MONOCYTES % (AUTO) 6 % (0-12); NEUTROPHILS # (AUTO) 10.6 X 10^3 (1.8-7.8); NEUTROPHILS % (AUTO) 83 % (42-75); PLATELET COUNT 225 10^3/uL (130-400); RED CELL DISTRIBUTION WIDTH 12.1 % (10.0-14.5); WHITE BLOOD COUNT 12.9 10^3/uL (4.3-11.0)
--- NOTE | 2019-04-08 12:55 | ED EENT ---
History of Present Illness General Chief Complaint: Dental Problems/Pain Stated Complaint: FACIAL SWELLING/DENTAL PAIN Nursing Triage Note: WAS SEEN AT URGENT CARE YESTERDAY FOR DENTAL ISSUES. WAS GIVEN A SHOT AND A RX FOR CLINDAMYCIN. STATES TO DAY HIS WHOLE FACE IS SWOLLEN AND COMPLAINS OF SEVERE PRESSURE. History of Present Illness Date Seen by Provider: Apr 08, 2019 Time Seen by Provider: 11:45 Initial Comments 33-year-old male presents for right upper dental pain. He reports approximately 3-4 days ago he had a left lower molar removed at the dental clinic. At that time he was having no pain in the right upper. The symptoms began approximately 2 days ago and he was seen at [facility] urgent care yesterday whe re he was given an IM injection and clindamycin orally for his symptoms. He took the clindamycin last evening and this morning. He has taken no Tylenol or ibuprofen, use any nbkf-kls-ihqyvtw dental pain remedies, warm compresses or salt water gargles. Timing/Duration: abrupt Location: mouth, dental Prearrival Treatment: prescription meds Associated Symptoms: No drooling; tooth pain Allergies and Home Medications Allergies Coded Allergies: No Known Drug Allergies (Unverified , 12/07/18) Patient Home Medication List Home Medication List Reviewed: Yes Review of Systems Review of Systems Constitutional: see HPI, malaise Eyes: No Symptoms Reported, See HPI Ears: No Symptoms Reported, See HPI Mouth: see HPI, pain, purulent discharge, other (dental pain) Throat: no symptoms reported, see HPI Respiratory: no symptoms reported, see HPI; No short of breath Skin: no symptoms reported, see HPI All Other Systems Reviewed Negative Unless Noted: Yes Past Iroymvr-Gbaxmp-Irpbde Hx Past Med/Social Hx: Reviewed Nursing Past Med/Soc Hx Patient Social History Alcohol Use: Occasionally Uses Alcohol Beverage of Choice: Beer Recreational Drug Use: No Smoking Status: Current Everyday Smoker Type Used: Cigarettes 2nd Hand Smoke Exposure: Yes Recent Foreign Travel: No Contact w/Someone Who Travel: No Recent Infectious Disease Expo: No Recent Hopitalizations: No Immunizations Up To Date Tetanus Booster (TDap): Less than 5yrs PED Vaccines UTD: Yes Seasonal Allergies Seasonal Allergies: No Past Medical History Surgeries: Yes (RIGHT HAND) Orthopedic Respiratory: No Cardiac: No Neurological: Yes Concussion Reproductive Disorders: No Genitourinary: No Gastrointestinal: No Musculoskeletal: Yes (RIGHT SHOULDER AC SEPARATION) Fractures Endocrine: No HEENT: No Cancer: No Psychosocial: Yes ADD/ADHD, Anxiety Integumentary: No Blood Disorders: No Physical Exam Vital Signs Vital Signs - First Documented 04/08/19 11:41 Temp 37.0 Pulse 107 Resp 18 B/P (MAP) 135/84 (101) Pulse Ox 100 Height, Weight, BMI Height: 5'10.00" Weight: 165lbs. 0oz. [id number]; 23.00 BMI Method:Stated General Appearance: WD/WN, no apparent distress Eyes: bilateral eye normal inspection, bilateral eye PERRL, bilateral eye EOMI Ears: bilateral ear auricle normal, bilateral ear canal normal, bilateral ear TM normal Nose: normal inspection; No active bleeding, No discharge Mouth/Throat: other (tooth #7 tender, gingival inflammation with some purulent discharge at the gumline. No palpable abscess in the gum or soft tissue externally. Marked induration in the left cheek, from the lip to nose to maxillary arch. No swellling extending to eye or ear. ) Neck: non-tender, full range of motion, lymphadenopathy (R) Cardiovascular: normal peripheral pulses, regular rate, rhythm Respiratory: chest non-tender, lungs clear, normal breath sounds Gastrointestinal: normal bowel sounds, non tender Neurologic/Psychiatric: no motor/sensory deficits, alert, normal mood/affect, oriented x 3 Skin: normal color, warm/dry Procedures/Interventions Suture Size: 4-0 Progress/Results/Core Measures Results/Orders Lab Results Laboratory Tests Test 04/08/19 12:46 Range/Units White Blood Count 12.9 H 4.3-11.0 10^3/uL Red Blood Count 4.82 4.35-5.85 10^6/uL Hemoglobin 15.7 13.3-17.7 G/DL Hematocrit 45 40-54 % Mean Corpuscular Volume 93 80-99 FL Mean Corpuscular Hemoglobin 33 25-34 PG Mean Corpuscular Hemoglobin Concent 35 32-36 G/DL Red Cell Distribution Width 12.1 10.0-14.5 % Platelet Count 225 130-400 10^3/uL Mean Platelet Volume 8.7 7.4-10.4 FL Neutrophils (%) (Auto) 83 H 42-75 % Lymphocytes (%) (Auto) 11 L 12-44 % Monocytes (%) (Auto) 6 0-12 % Eosinophils (%) (Auto) 0 0-10 % Basophils (%) (Auto) 0 0-10 % Neutrophils # (Auto) 10.6 H 1.8-7.8 X 10^3 Lymphocytes # (Auto) 1.4 1.0-4.0 X 10^3 Monocytes # (Auto) 0.8 0.0-1.0 X 10^3 Eosinophils # (Auto) 0.0 0.0-0.3 10^3/uL Basophils # (Auto) 0.0 0.0-0.1 10^3/uL Erythrocyte Sedimentation Rate 13 0-15 MM/HR Sodium Level 140 135-145 MMOL/L Potassium Level 4.3 3.6-5.0 MMOL/L Chloride Level 103 98-107 MMOL/L Carbon Dioxide Level 24 21-32 MMOL/L Anion Gap 13 5-14 MMOL/L Blood Urea Nitrogen 7 7-18 MG/DL Creatinine 1.22 0.60-1.30 MG/DL Estimat Glomerular Filtration Rate > 60 BUN/Creatinine Ratio 6 Glucose Level 106 H 70-105 MG/DL Calcium Level 9.5 8.5-10.1 MG/DL Corrected Calcium 9.2 8.5-10.1 MG/DL Total Bilirubin 0.7 0.1-1.0 MG/DL Aspartate Amino Transf (AST/SGOT) 27 5-34 U/L Alanine Aminotransferase (ALT/SGPT) 29 0-55 U/L Alkaline Phosphatase 78 40-136 U/L Total Protein 7.2 6.4-8.2 GM/DL Albumin 4.4 3.2-4.5 GM/DL My Orders Orders - AGUSTIN LIVINGSTON Cbc With Automated Diff (04/08/19 12:07) Comprehensive Metabolic Panel (04/08/19 12:07) Erythrocyte Sedimentation Rate (04/08/19 12:07) Ed Iv/Invasive Line Start (04/08/19 12:07) Ns Iv 1000 Ml (Sodium Chloride 0.9%) (04/08/19 12:07) Ketorolac Injection (Toradol Injection) (04/08/19 12:07) Ct Head/Maxillofacial Wo (04/08/19 12:07) Ceftriaxone For Iv Use (Rocephin For I (04/08/19 13:15) Tramadol Tablet (Ultram Tablet) (04/08/19 14:00) Medications Given in ED Current Medications Medications Dose Ordered Sig/Alexei Route Start Time Stop Time Status Last Admin Dose Admin Ceftriaxone Sodium 2000 mg/ Sterile Water 20 ml @ 240 mls/hr ONCE ONCE IV 04/08/19 13:15 04/08/19 13:19 DC 04/08/19 13:54 240 MLS/HR Tramadol HCl 50 mg ONCE ONCE PO 04/08/19 14:00 04/08/19 14:01 DC 04/08/19 14:22 50 MG Vital Signs/I&O 04/08/19 11:41 Temp 37.0 Pulse 107 Resp 18 B/P (MAP) 135/84 (101) Pulse Ox 100 Blood Pressure Mean: 101 Progress Progress Note : Time: 11:45 Progress Note Patient seen and evaluated, will obtain labs, LR 1 L per IV, warm moist compresses to right cheek, we'll obtain CT of the head/maxillofacial. Toradol 30 mg IV for pain. 1230 patient reports some improvement in pain, 1245 CT shows no abscess. Results discussed with the patient. Awaiting labs. 1300 will give Rocephin 2 g IV. CBC 12.9, awaiting ESR. 1330 ESR 9, requesting additional pain medicine, will give tramadol 50 mg by mouth. 1345 discharge instructions and return precautions reviewed with the patient. All questions answered. Diagnostic Imaging Diagonstic Imaging: CT Plain Films/CT/US/NM/MRI: facial bones, head Comments NAME: ESTELA COTTRELL [facility] REC#: [id number] PT STATUS: REG ER : 1985 PHYSICIAN: AGUSTIN LIVINGSTON ADMIT DATE: 04/08/19/ER Draft Date of Exam:04/08/19 CT HEAD/MAXILLOFACIAL WO PROCEDURE: CT head and maxillofacial without contrast. TECHNIQUE: Multiple contiguous axial images were obtained through the head and facial bones without the use of intravenous contrast. Auto Exposure Controls were utilized during the CT exam to meet ALARA standards for radiation dose reduction. INDICATION: Right facial swelling. COMPARISON: None available. FINDINGS: CT HEAD: No hyperdense hemorrhage or space-occupying mass. No hydrocephalus or midline shift. Shah-white matter differentiation is well-preserved. No acute calvarial abnormality. Paranasal sinuses and mastoid air cells are clear. CT FACE: No fracture of the mid face or mandible. Paranasal sinuses and mastoid air cells are clear. No dental caries. Periapical lucencies involving the bilateral lateral incisors could represent periodontal disease versus benign cystic change. Mild asymmetric subcutaneous edema overlying the right maxillary alveolar ridge. No underlying periodontal disease. IMPRESSION: 1. No acute intracranial process. 2. Periapical lucencies involving the bilateral lateral maxillary incisors may represent periodontal disease. There is overlying soft tissue swelling. However, there is no drainable abscess present. This is asymmetric to the right and may explain the patient's right-sided facial swelling. Dictated on workstation # [id number] Reviewed: Reviewed by Me Departure Impression Primary Impression: Dental caries Additional Impression: Gingival abscess Disposition: HOME, SELF-CARE Condition: Improved Departure-Patient Inst. Decision time for Depature: 14:00 Referrals: NO,LOCAL PHYSICIAN (PCP/Family) Primary Care Physician Patient Instructions: Dental Pain (DC), Tooth Decay, Adult (DC) Add. Discharge Instructions: Alternate between Tylenol 650 mg and ibuprofen 600 mg every 4 hours for pain or fever. Use warm moist compresses on your right cheek every 15-20 minutes as needed for pain or swelling. Use warm water and salt gargling her mouth every 15-20 minutes as needed. You may use [id number] dental pain ointments, such as Orajel, as needed and directed on the box. Follow-up with a dental clinic if symptoms are not improving or worsen Continue to take the clindamycin as ordered. Return to the emergency department for new, urgent health care needs. All discharge instructions reviewed with patient and/or family. Voiced understanding. AGUSTIN LIVINGSTON Apr 08, 2019 12:55
[2019-04-08 13:12] LABS: ALANINE AMINOTRANSFERASE 29 U/L (0-55); ALBUMIN 4.4 GM/DL (3.2-4.5); ALKALINE PHOSPHATASE 78 U/L (40-136); BILIRUBIN,TOTAL 0.7 MG/DL (0.1-1.0); BUN/CREATININE RATIO 6; CALCIUM 9.5 MG/DL (8.5-10.1); CARBON DIOXIDE 24 MMOL/L (21-32); CHLORIDE 103 MMOL/L (98-107); CREATININE SERUM 1.22 MG/DL (0.60-1.30); GFR ESTIMATED > 60; GLUCOSE 106 MG/DL (70-105); POTASSIUM 4.3 MMOL/L (3.6-5.0); SODIUM 140 MMOL/L (135-145); TOTAL PROTEIN 7.2 GM/DL (6.4-8.2)
[2019-04-08] MEDS ORDERED: cefTRIAXone FOR IV USE 2,000 MG in WATER (STERILE) FOR INJECTION 20 ML IV ONE (13:15)
[2019-04-08 13:46] LABS: ERYTHROCYTE SEDIMENTATION RATE 13 MM/HR (0-15)
[2019-04-08 14:25] VITALS: BP 135/84
== END 2019-04-08 14:25 | disposition home or self-care (01) ==
LOC: EDUNIT# 11:34 → ER 11:35
DX: K02.9 Dental caries, unspecified (principal); K05.219 Aggressive periodontitis, localized, unspecified severity; F90.9 Attention-deficit hyperactivity disorder, unspecified type; F41.9 Anxiety disorder, unspecified; F17.210 Nicotine dependence, cigarettes, uncomplicated; Z87.820 Personal history of traumatic brain injury
CPT/HCPCS: 36415; 70450; 70486; 80053; 85025; 85652; 96361; 96374; 96375

== ENCOUNTER 2019-07-19 15:55 | Emergency (ER) | payer SELFPAY ==
[~2019-07-19] VITALS: Ht 177.8 cm; Wt 74.8 kg
[~2019-07-19 15:55] MED LIST changes: -HYDR-3812 PO
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
--- NOTE | 2019-07-19 16:47 | Diagnostic Imaging Report ---
CLINICAL INDICATION: Patient with right knee pain. Patient denies injury. 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 EXAM: X-ray of the right knee, three views. COMPARISON: X-ray of the right tibia and fibula dated 01/16/2018. FINDINGS: There is no acute fracture or dislocation. There is a right knee effusion. There is minimal medial compartment spurring. The remainder of the knee is unremarkable. IMPRESSION: 1: There is mild medial compartment degenerative disease with no acute fracture or dislocation. 2: There is nonspecific right knee joint effusion. If there is concern for soft tissue or ligamentous injury, then nonemergent MRI would better evaluate. Dictated by: Dictated on workstation # [id number]
--- OUTSIDE RECORDS SUMMARY | 2019-07-19 16:56 | XMS REPORT ---
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 information no name (no todd ne) no organization name - patient visit (no phone) 04-08-2019 02-05-2019 Emergency department no information (no phone) [facility] - patient visit Hospital (no phone) 02-05-2019 02-05-2019 Emergency department no information no name (no todd ne) no organization name - patient visit (no phone) 02-05-2019 01-11-2019 Emergency department no information (no phone) [facility] - patient visit [facility] (no phone) 01-11-2019 12-07-2018 Emergency department no information JORGE L Aaron APRN [facility] no organization name - patient visit Work Phone: (no phone) 12-07-2018 12-07-2018 Emergency department no information no name (no todd ne) no organization name - patient visit (no phone) 12-07-2018 06-05-2018 Emergency department no information LUCIANA HITCHCOCK ( no no organization name - patient visit phone) (no phone) 06-05-2018 01-16-2018 Emergency department no information HYUN NOONAN no organization name - patient visit Work Phone: (no phone) 01-16-2018 10-08-2017 Emergency department no information JORGE L Aaron APRN [facility] no organization name - patient visit Work Phone: (no phone) 10-08-2017 08-04-2016 Emergency department no information no name (no todd ne) no organization name - patient visit (no phone) 08-04-2016 06-08-2016 Emergency department no information no name (no todd ne) no organization name - patient visit (no phone) 06-08-2016 06-08-2016 Emergency department no information no name (no todd ne) no organization name - patient visit (no phone) 06-08-2016 09-10-2013 Emergency department no information no name (no todd ne) no organization name - patient visit (no phone) 09-10-2013 08-11-2013 Emergency department no information no name (no todd ne) no organization name - patient visit (no phone) 08-11-2013 01-16-2018 Patient encounter no information no name (no phone) no organization name (no phone) 10-08-2017 Patient encounter no information no name (no phone) no organization name (no phone) 07-26-2017 Patient encounter no information no name (no phone) no organization name (no phone) 07-08-2017 Patient encounter no information no name (no phone) no organization name (no phone) Patient encounter no information no name (no phone) no organ ization name (no phone) 04-08-2019 Patient encounter no information no name (no phone) no organization name procedure (no phone) 04-07-2019 Patient encounter no information no name (no phone) no organization name procedure (no phone) 04-02-2019 Patient encounter no information no name (no phone) no organization name procedure (no phone) 02-05-2019 Patient encounter no information no name (no phone) no organization name procedure (no phone) 12-07-2018 Patient encounter no information no name (no phone) no organization name procedure (no phone) 06-05-2018 Patient encounter no information no name (no phone) no organization name procedure (no phone) 06-08-2016 Patient encounter no information no name (no phone) no organization name procedure (no phone) 06-07-2016 Patient encounter no information no name (no phone) no organization name procedure (no phone) no information Encounter for dental no name (no phone) no or ganization name examination and (no phone) cleaning without abnormal findings no information Dental examination no name (no phone) no orga nization name (no phone) Medical Equipment The data below is from unstructured sourcesNo Medical Equipment Information availableNo Medical Equipment Information availableNo Medical Equipment Information available Payers Normalized Payer Value Unknown no information ([id number]) Evaluation note Note Type Note Facility Evaluation No Assessments Information Available A scension note [facility] ([id number]) History general Narrative - Reported Note Type Note Facility History general Narrative - Reported Type Surgical No Surgical history informa tion History [facility] ([id number]) Summary Purpose eClinicalWorks Submission Advance Directives Directive Response Recor ded Date/Time Advance Directives No 11:35pm Resuscitation Status Full Code 06/07/16 11:35pm Directive Response Recor ded Date/Time Advance Directives No 11:34pm Resuscitation Status Full Code 08/04/16 11:34pm Directive Response Recor ded Date/Time Advance Directives No 7:24am Resuscitation Status Full Code 05/15/14 7:24am Directive Response Recor ded Date/Time Advance Directives No 8:32pm Resuscitation Status Full Code 10/08/17 8:32pm Directive Response Recor ded Date/Time Advance Directives No 3:05pm Resuscitation Status Full Code 01/16/18 3:05pm Directive Response Recor ded Date/Time Advance Directives No 12:40pm Resuscitation Status Full Code 06/05/18 12:40pm Directive Response Recor ded Date/Time Advance Directives No 10:24am Resuscitation Status Full Code 12/07/18 10:24am Advance Directive Response Recorded Date/Time Advance Directives No No traber 2018 5:05pm Resuscitation Status Full Code February 05, 2019 5:05pm Advance Directive Response Recorded Date/Time Advance Directives No Maynor castilloary 2019 11:45am Resuscitation Status Full Code April 08, 2019 11:45am Discharge Instructions No hospital discharge instructions.No hospital discharge instruction information available.No hospital discharge instructions.No hospital discharge instruction information available.No hospital discharge instruction information available.No hospital discharge instruction information available.No hospital discharge instruction information available. Chief Complaint and Reason for Visit Chief Complaint Trauma-Non Activatio n Reason for Visit [id number] Laceration of left lower leg Chief Complaint Upper Extremity Reason for Visit Contusion of wrist bilateral contusion of wrists Chief Complaint Eye Problems Reason for Visit Conjunctivitis Chief Complaint Trauma-Non Activatio n Reason for Visit [id number] Chief Complaint Dental Problems/Pain Reason for Visit [id number] Additional Source Comments This clinical document has been generated using [employer] software that has been certified by the Office of the National Coordinator for Health Information Technology (ONC 15.99.04.3023.Diam.31.00.0.104908) and the National Committee for Histology Technologist (NCQA, as an eMeasure certified technology). FOR RECORDS PERTAINING TO PATIENTS WHO ARE OR HAVE BEEN ENROLLED IN A CHEMICAL D EPENDENCY/SUBSTANCE ABUSE PROGRAM, SOME INFORMATION MAY BE OMITTED. This clinica l summary was aggregated from multiple sources. Caution should be exercised in using it in the provision of clinical care. This summary normalizes information from multiple sources, and as a consequence, information in this document may ma terially change the coding, format and clinical context of patient data. In matthew tion, data may be omitted in some cases. CLINICAL DECISIONS SHOULD BE BASED ON T HE PRIMARY CLINICAL RECORDS. [facility]. provides no warranty or guara ntee of the accuracy or completeness of information in this document.The followi information is based on time limited clinical information UNRECOGNIZED CONTENT PROVIDED BELOW FOR UNRECOGNIZED SECTION REASON FOR VISIT [id number]
--- OUTSIDE RECORDS SUMMARY | 2019-07-19 16:56 | XMS REPORT ---
Author Author Michael PEÑA Organization [facility] Address [address] [place] [address] Care Team Providers Care Cnc Machine Setter Name Role Phone ARTURO PEÑA Unavailable PROBLEMS Type Condition ICD9-CM Code [id number] Code Onset Dates Condition S tatus SNOMED Code Problem Routine general medical examination at [facility] y V70.0 Active 377755834 Problem Dysthymic disorder 300.4 Active 7 6641059 Problem Family history of diabetes mellitus V18.0 Active 898554095 Problem Family history of other cardiovascular diseases V17.49 Active 264267161 ALLERGIES No Information ENCOUNTERS Encounter Location Date Diagnosis [facility] [address] [facility] [id number] [place] [address] 18 Mar, 2019 Dental abscess K04.7 and Den kevin infection K04.7 [facility] [address] [id number] Mar, Dental examination Z01.[address]02 [address] [facility] [address] [id number] July, Dental caries K02.9 [facility] [address] [id number] Jun, Dental examination Z01.20 [facility] [address] [address] Aug, Pain in right knee M25.561 [facility] [address] [id number] Sep, Dental examination Z01.20 [facility] [address] [id number] July, Dental examination V72.2 [facility] [address] [address] Jun, [facility] [id number] [place] [address] Jun, [facility] [address] [facility] [place] [id number] May, [facility] [address] [id number] [place] [address] May, [facility] [id number] [place] [id number] May, [facility] [id number] [place] [address] Apr, [facility] [id number] [place] [address] Apr, [facility] [id number] [place] [address] Apr, [facility] [id number] [place] [address] Apr, [facility] [id number] [place] [address] Apr, [facility] [id number] [place] [address] Apr, [facility] [id number] [place] [address] Apr, [facility] [id number] [place] [address] Apr, [facility] [id number] [place] [address] Apr, IMMUNIZATIONS No Known Immunizations SOCIAL HISTORY Never Assessed REASON FOR VISIT PLAN OF CARE VITAL SIGNS MEDICATIONS No Known Medications RESULTS No Results PROCEDURES No Known procedures INSTRUCTIONS MEDICATIONS ADMINISTERED No Known Medications MEDICAL (GENERAL) HISTORY Type Description Date Surgical History No Surgical history information
--- OUTSIDE RECORDS SUMMARY | 2019-07-19 16:57 | XMS REPORT ---
Author Author Michael HERNANDEZ Organization [facility] Address [address] [place] [address] Care Team Providers Care Brewmaster Name Role Phone MELINDA HERNANDEZ Unavailable PROBLEMS Type Condition ICD9-CM Code NOW23-IY Code Onset Dates Condition S tatus SNOMED Code Problem Routine general medical examination at [facility] y V70.0 Active 309733836 Problem Dysthymic disorder 300.4 Active 7 4134307 Problem Family history of diabetes mellitus V18.0 Active 803482442 Problem Family history of other cardiovascular diseases V17.49 Active 633878260 ALLERGIES No Information ENCOUNTERS Encounter Location Date Diagnosis [facility] [address] [facility] [id number] [address] [address] Mar, Dental abscess K04.7 and Den kevin infection K04.[address] [facility] [address] [id number] Mar, Dental examination Z01.20 and Caries K02 .[address] [facility] [address] [id number] July, Dental caries K02.[address] [facility] [address] [id number] Jun, Dental examination Z01.20 [facility] [address] [address] Aug, Pain in right knee M25.[address] [facility] [address] [id number] Sep, Dental examination Z01.[address] [facility] [address] [id number] July, Dental examination V72.2 [facility] [address] [place] [address] Jun, [facility] [address] [id number] [place] [address] Jun, [facility] [address] [facility] [place] [id number] May, [facility] [id number] [place] [address] May, [facility] [address] [facility] [place] [id number] May, [facility] [id number] [place] [address] Apr, [facility] [id number] [place] [address] Apr, [facility] [id number] [place] [address] 19 Apr, 2013 [facility] [id number] [place] [address] Apr, [facility] [id number] [place] [address] Apr, [facility] [id number] [place] [address] Apr, [facility] [id number] [place] [address] 14 Apr, 2013 [facility] [id number] [place] [address] Apr, [facility] [id number] [place] [address] Apr, IMMUNIZATIONS No Known Immunizations SOCIAL HISTORY Never Assessed REASON FOR VISIT PLAN OF CARE VITAL SIGNS MEDICATIONS No Known Medications RESULTS No Results PROCEDURES No Known procedures INSTRUCTIONS MEDICATIONS ADMINISTERED No Known Medications MEDICAL (GENERAL) HISTORY Type Description Date Surgical History No Surgical history information
--- OUTSIDE RECORDS SUMMARY | 2019-07-19 16:57 | XMS REPORT ---
Author Author Michael Mendiola Doctor Organization [facility] Address Unknown Phone Unavailable Care Team Providers Care Licensed Psychologist Name Role Phone Migration, Doctor Unavailable Unavailable PROBLEMS Type Condition ICD9-CM Code ZCQ35-FV Code Onset Dates Condition S tatus SNOMED Code Problem Routine general medical examination at [facility] y V70.0 Active 068205238 Problem Dysthymic disorder 300.4 Active 7 2837120 Problem Family history of diabetes mellitus V18.0 Active 210169169 Problem Family history of other cardiovascular diseases V17.49 Active 520739518 ALLERGIES No Information ENCOUNTERS Encounter Location Date Diagnosis [facility] [address] [id number] [address] [place] [id number] July, Dental caries K02.9 [facility] [address] [id number] [address] [place] [id number] Jun, Dental examination Z01.20 [facility] [address] [id number] [address] [place] [address] Aug, Pain in right knee M25.561 [facility] [address] [id number] [address] [place] [id number] Sep, Dental examination Z01.20 [facility] [address] [id number] [address] [place] [id number] July, Dental examination V72.2 [facility] [address] [id number] [address] [place] [address] Jun, [facility] [address] [id number] [address] [place] [address] Jun, [facility] [address] [id number] [address] [place] [id number] May, [facility] [address] [id number] [address] [place] [address] May, [facility] [address] [id number] [address] [place] [id number] May, [facility] [address] [id number] [address] [place] [address] 20 Apr, 2013 [facility] [address] [id number] [address] [place] [address] 20 Apr, 2013 [facility] [address] [id number] [address] [place] [address] Apr, [facility] [address] [id number] [address] [place] [address] Apr, [facility] [address] [id number] [address] [place] [address] 17 Apr, 2013 [facility] [address] [id number] [address] [place] [address] 14 Apr, 2013 [facility] [address] [id number] [address] [place] [address] 14 Apr, 2013 [facility] [address] [id number] [address] [place] [address] Apr, [facility] [address] [id number] [address] [place] [address] Apr, IMMUNIZATIONS No Known Immunizations SOCIAL HISTORY Never Assessed REASON FOR VISIT EMR-[facility] PLAN OF CARE VITAL SIGNS MEDICATIONS No Known Medications RESULTS No Results PROCEDURES No Known procedures INSTRUCTIONS MEDICATIONS ADMINISTERED No Known Medications
--- OUTSIDE RECORDS SUMMARY | 2019-07-19 16:57 | XMS REPORT ---
Author Author Michael Mendiola Doctor Organization [facility] Address Unknown Phone Unavailable Care Team Providers Care Oil Field Operator Name Role Phone Migration, Doctor Unavailable Unavailable PROBLEMS Type Condition ICD9-CM Code YRU48-JF Code Onset Dates Condition S tatus SNOMED Code Problem Routine general medical examination at [facility] V70.0 Active 699161136 Problem Dysthymic disorder 300.4 Active 7 1750637 Problem Family history of diabetes mellitus V18.0 Active 778967538 Problem Family history of other cardiovascular diseases V17.49 Active 944144447 ALLERGIES No Information ENCOUNTERS Encounter Location Date Diagnosis [facility] [address] [facility] [id number] [address] [place] [address] Mar, Dental abscess K04.7 and Den kevin infection K04.7 [facility] [address] [id number] Mar, Dental examination Z01.20 and Caries K02 .9 [facility] [address] [id number] July, Dental caries K02.9 [facility] [address] [id number] Jun, Dental examination Z01.20 [facility] [address] [address] Aug, Pain in right knee M25.561 [facility] [address] [id number] Sep, Dental examination Z01.20 [facility] [address] [id number] July, Dental examination V72.2 [facility] [address] [address] 14 Jun, 2014 [facility] [address] [address] Jun, [facility] [address] [id number] [place] [id number] May, [facility] [id number] [place] [address] May, [facility] [address] [id number] [place] [id number] May, [facility] [id number] [place] [address] Apr, [facility] [id number] [place] [address] Apr, [facility] [id number] [place] [address] Apr, [facility] [id number] [place] [address] Apr, [facility] [id number] [place] [address] Apr, [facility] [id number] [place] [address] Apr, [facility] [id number] [place] [address] Apr, [facility] [id number] [place] [address] Apr, [facility] [id number] [place] [address] Apr, IMMUNIZATIONS No Known Immunizations SOCIAL HISTORY Never Assessed REASON FOR VISIT PLAN OF CARE VITAL SIGNS MEDICATIONS No Known Medications RESULTS No Results PROCEDURES No Known procedures INSTRUCTIONS MEDICATIONS ADMINISTERED No Known Medications MEDICAL (GENERAL) HISTORY Type Description Date Surgical History No Surgical history information
--- OUTSIDE RECORDS SUMMARY | 2019-07-19 16:57 | XMS REPORT ---
Author Author Michael Mendiola Doctor Organization [facility] Address Unknown Phone Unavailable Care Team Providers Care Railway Head Tender Name Role Phone Migration, Doctor Unavailable Unavailable PROBLEMS Type Condition ICD9-CM Code PPS13-TP Code Onset Dates Condition S tatus SNOMED Code Problem Routine general medical examination at [facility] y V70.0 Active 516744954 Problem Dysthymic disorder 300.4 Active 7 5514810 Problem Family history of diabetes mellitus V18.0 Active 990337234 Problem Family history of other cardiovascular diseases V17.49 Active 988276395 ALLERGIES No Information ENCOUNTERS Encounter Location Date Diagnosis [facility] [address] [id number] [address] [place] [address] [id number] July, Dental caries K02.9 [facility] [address] [id number] [address] [place] [address] [phone] Jun, Dental examination Z01.20 [facility] [address] [id number] [address] [place] [address] Aug, Pain in right knee M25.561 [facility] [address] [id number] [address] [place] [address] [phone] Sep, Dental examination Z01.20 [facility] [address] [id number] [address] [place] [address] [id number] July, Dental examination V72.2 [facility] [address] [id number] [address] [place] [phone] Jun, [facility] [address] [id number] [address] [place] [phone] Jun, [facility] [address] [id number] [address] [place] [address] [id number] May, [facility] [address] [id number] [address] [place] [phone] May, [facility] [address] [id number] [address] [place] [address] [phone] May, [facility] [address] [id number] [address] [place] [phone] Apr, [facility] [address] [id number] [address] [place] [phone] Apr, [facility] [address] [id number] [address] [place] [phone] Apr, [facility] [address] [id number] [address] [place] [phone] Apr, [facility] [address] [id number] [address] [place] [phone] Apr, [facility] [address] [id number] [address] [place] [phone] Apr, [facility] [address] [id number] [address] [place] [phone] Apr, [facility] [address] [id number] [address] [place] [phone] Apr, [facility] [address] [id number] [address] [place] [phone] Apr, IMMUNIZATIONS No Known Immunizations SOCIAL HISTORY Never Assessed REASON FOR VISIT E[facility] PLAN OF CARE VITAL SIGNS MEDICATIONS Medication Instructions Dosage Frequency Start Date End Date Duration S tatus Remeron 15 mg 1 tablet by Oral route 1 time per day 2013 Active Ativan 0.5 mg 1 tablet by Oral route 2 times per day Apr, Active RESULTS No Results PROCEDURES No Known procedures INSTRUCTIONS MEDICATIONS ADMINISTERED No Known Medications
--- OUTSIDE RECORDS SUMMARY | 2019-07-19 16:57 | XMS REPORT ---
Author Author Michael PEÑA Organization [facility] Address [address] [place] [address] Care Team Providers Care Route Returner Name Role Phone ARTURO PEÑA Unavailable PROBLEMS Type Condition ICD9-CM Code KLP89-XG Code Onset Dates Condition S tatus SNOMED Code Problem Routine general medical examination at [facility] y V70.0 Active 458204629 Problem Dysthymic disorder 300.4 Active 7 4445962 Problem Family history of diabetes mellitus V18.0 Active 422088697 Problem Family history of other cardiovascular diseases V17.49 Active 498888187 ALLERGIES No Information ENCOUNTERS Encounter Location Date Diagnosis [facility] [address] [facility] [id number] [address] [place] [address] 18 Mar, 2019 Dental abscess K04.7 and Den kevin infection K04.7 [facility] [address] [id number] Mar, Dental examination Z01.20 and Caries K02 .9 [facility] [address] [id number] July, Dental caries K02.9 [facility] [address] [id number] Jun, Dental examination Z01.20 [facility] [address] [address] Aug, Pain in right knee M25.561 [facility] [address] [id number] Sep, Dental examination Z01.20 [facility] [address] [id number] July, Dental examination V72.2 [facility] [address] [address] Jun, [facility] [id number] [place] [address] Jun, [facility] [id number] [place] [id number] May, [facility] [id number] [place] [address] May, [facility] [id number] [place] [phone] May, [facility] [id number] [place] [address] Apr, [facility] [id number] [place] [address] Apr, [facility] [id number] [place] [address] Apr, [facility] [id number] [place] [address] Apr, [facility] [id number] [place] [address] Apr, [facility] [id number] [place] [address] Apr, [facility] [id number] [place] [address] Apr, [facility] [id number] [place] [address] Apr, [facility] [id number] [place] [address] Apr, IMMUNIZATIONS No Known Immunizations SOCIAL HISTORY Never Assessed REASON FOR VISIT PLAN OF CARE VITAL SIGNS Height 70.5 in 2013-05-03 Weight 167 lbs 2013-05-03 Temperature 98.8 degrees Fahrenheit 2013-05-03 Heart Rate 88 bpm 2013-05-03 Respiratory Rate 22 2013-05-03 Blood pressure systolic 136 mmHg 2013-05-03 Blood pressure diastolic 92 mmHg 2013-05-03 MEDICATIONS No Known Medications RESULTS No Results PROCEDURES Procedure Date Ordered Result Body Site COMPLETE CBC W/AUTO DIFF WBC May 03, 2013 ASSAY THYROID STIM HORMONE May 03, 2013 COMPREHEN METABOLIC PANEL May 03, 2013 VENIPUNCT, ROUTINE* May 03, 2013 INSTRUCTIONS MEDICATIONS ADMINISTERED No Known Medications MEDICAL (GENERAL) HISTORY Type Description Date Surgical History No Surgical history information
--- OUTSIDE RECORDS SUMMARY | 2019-07-19 16:57 | XMS REPORT ---
Author Author Michael PEÑA Organization [facility] Address [address] [place] [address] Care Team Providers Care Chucking Machine Set Up Operator Tool Name Role Phone ARTURO PEÑA Unavailable PROBLEMS Type Condition ICD9-CM Code CZN13-LA Code Onset Dates Condition S tatus SNOMED Code Problem Routine general medical examination at [facility] y V70.0 Active 936254326 Problem Dysthymic disorder 300.4 Active 7 7993773 Problem Family history of diabetes mellitus V18.0 Active 588828548 Problem Family history of other cardiovascular diseases V17.49 Active 125932501 ALLERGIES No Information ENCOUNTERS Encounter Location Date Diagnosis [facility] [address] [facility] [id number] [address] [place] [address] Mar, Dental abscess K04.7 and Den kevin infection K04.7 [facility] [address] [id number] Mar, Dental examination Z01.20 and Caries K02 .9 [facility] [address] [id number] July, Dental caries K02.9 [facility] [address] [id number] Jun, Dental examination Z01.20 [facility] [address] [address] Aug, Pain in right knee M25.561 [facility] [address] [id number] Sep, Dental examination Z01.20 [facility] [address] [id number] July, Dental examination V72.2 [facility] [address] [address] Jun, [facility] [id number] [place] [address] Jun, [facility] [address] [id number] [place] [id number] May, [facility] [address] [id number] [place] [address] May, [facility] [id number] [place] [id number] May, [facility] [id number] [place] [address] Apr, [facility] [id number] [place] [address] Apr, [facility] [id number] [place] [address] Apr, [facility] [id number] [place] [address] Apr, [facility] [id number] [place] [address] Apr, [facility] [id number] [place] [address] Apr, [facility] [id number] [place] [address] Apr, [facility] [id number] [place] [address] Apr, [facility] [id number] [place] [address] Apr, IMMUNIZATIONS No Known Immunizations SOCIAL HISTORY Never Assessed REASON FOR VISIT PLAN OF CARE VITAL SIGNS MEDICATIONS No Known Medications RESULTS No Results PROCEDURES No Known procedures INSTRUCTIONS MEDICATIONS ADMINISTERED No Known Medications MEDICAL (GENERAL) HISTORY Type Description Date Surgical History No Surgical history information
--- OUTSIDE RECORDS SUMMARY | 2019-07-19 16:57 | XMS REPORT ---
Author Author Michael PEÑA Organization [facility] Address [address] [place] [address] Care Team Providers Care Property Man Name Role Phone ARTURO PEÑA Unavailable PROBLEMS Type Condition ICD9-CM Code QSO10-WW Code Onset Dates Condition S tatus SNOMED Code Problem Routine general medical examination at [facility] y V70.0 Active 910028534 Problem Dysthymic disorder 300.4 Active 7 9503939 Problem Family history of diabetes mellitus V18.0 Active 124093917 Problem Family history of other cardiovascular diseases V17.49 Active 022238565 ALLERGIES No Information ENCOUNTERS Encounter Location Date Diagnosis [facility] [address] [facility] [id number] [address] [place] [address] 18 Mar, 2019 Dental abscess K04.7 and Den kevin infection K04.7 [facility] [address] [id number] Mar, Dental examination Z01.20 and Caries K02 .9 [facility] [address] [id number] July, Dental caries K02.9 [facility] [address] [id number] Jun, Dental examination Z01.20 [facility] [address] [address] Aug, Pain in right knee M25.561 [facility] [address] [id number] Sep, Dental examination Z01.20 [facility] [address] [id number] July, Dental examination V72.2 [facility] [address] [address] Jun, [facility] [id number] [place] [address] Jun, [facility] [address] [id number] [place] [id number] May, [facility] [address] [id number] [place] [address] May, [facility] [id number] [place] [id number] May, [facility] [id number] [place] [address] Apr, [facility] [id number] [place] [address] Apr, [facility] [id number] [place] [address] Apr, [facility] [id number] [place] [address] Apr, [facility] [id number] [place] [address] Apr, [facility] [id number] [place] [address] Apr, [facility] [id number] [place] [address] Apr, [facility] [id number] [place] [address] Apr, [facility] [id number] [place] [address] Apr, IMMUNIZATIONS No Known Immunizations SOCIAL HISTORY Never Assessed REASON FOR VISIT PLAN OF CARE VITAL SIGNS MEDICATIONS No Known Medications RESULTS No Results PROCEDURES No Known procedures INSTRUCTIONS MEDICATIONS ADMINISTERED No Known Medications MEDICAL (GENERAL) HISTORY Type Description Date Surgical History No Surgical history information
--- OUTSIDE RECORDS SUMMARY | 2019-07-19 16:57 | XMS REPORT ---
Author Author Michael Mendiola Doctor Organization [facility] Address Unknown Phone Unavailable Care Team Providers Care Dictating Machine Typist Name Role Phone Migration, Doctor Unavailable Unavailable PROBLEMS Type Condition ICD9-CM Code YNB16-DD Code Onset Dates Condition S tatus SNOMED Code Problem Routine general medical examination at [facility] y V70.0 Active 776145148 Problem Dysthymic disorder 300.4 Active 7 6597271 Problem Family history of diabetes mellitus V18.0 Active 404416050 Problem Family history of other cardiovascular diseases V17.49 Active 783581539 ALLERGIES No Information ENCOUNTERS Encounter Location Date Diagnosis [facility] [address] [id number] [address] [place] [address] [id number] July, Dental caries K02.9 [facility] [address] [id number] [address] [place] [address] [id number] Jun, Dental examination Z01.20 [facility] [address] [id number] [address] [place] [address] Aug, Pain in right knee M25.561 [facility] [address] [id number] [address] [place] [address] [id number] Sep, Dental examination Z01.20 [facility] [address] [id number] [address] [place] [address] [id number] July, Dental examination V72.2 [facility] [address] [id number] [address] [place] [address] Jun, [facility] [address] [id number] [address] [place] [address] Jun, [facility] [address] [id number] [address] [place] [address] [id number] May, [facility] [address] [id number] [address] [place] [address] May, [facility] [address] [id number] [address] [place] [address] [id number] May, [facility] [address] [id number] [address] [place] [address] 20 Apr, 2013 [facility] [address] [id number] [address] [place] [address] 20 Apr, 2013 [facility] [address] [id number] [address] [place] [address] Apr, [facility] [address] [id number] [address] [place] [address] Apr, [facility] [address] [id number] [address] [place] [phone] 17 Apr, 2013 [facility] [address] [id number] [address] [place] [address] 14 Apr, 2013 [facility] [address] [id number] [address] [place] [address] 14 Apr, 2013 [facility] [address] [id number] [address] [place] [address] Apr, [facility] [address] [id number] [address] [place] [phone] Apr, IMMUNIZATIONS No Known Immunizations SOCIAL HISTORY Never Assessed REASON FOR VISIT EMR-[facility] PLAN OF CARE VITAL SIGNS MEDICATIONS No Known Medications RESULTS No Results PROCEDURES No Known procedures INSTRUCTIONS MEDICATIONS ADMINISTERED No Known Medications
[2019-07-19] MEDS ORDERED: TRAM-42 PO (17:12)
[2019-07-19] MEDS ORDERED: PRD20T PO (17:12)
[2019-07-19 17:22] VITALS: BP 139/84
== END 2019-07-19 17:21 | disposition home or self-care (01) ==
LOC: EDUNIT# 15:55 → ER 15:57
DX: M25.561 Pain in right knee (principal); M54.10 Radiculopathy, site unspecified; F17.210 Nicotine dependence, cigarettes, uncomplicated; Z87.828 Personal history of other (healed) physical injury and trauma; X50.1XXA Overexertion from prolonged static or awkward postures, initial encounter
CPT/HCPCS: 73562

== ENCOUNTER 2019-07-22 17:05 | Emergency (ER) | payer SELFPAY ==
[~2019-07-22] VITALS: Ht 177.8 cm; Wt 75.0 kg
[~2019-07-22 17:05] MED LIST changes: +PRD20T PO; +TRAM-42 PO
--- NOTE | 2019-07-22 17:12 | ED Lower Extremity ---
General Stated Complaint: R LOWER LEG PAIN History of Present Illness Date Seen by Provider: July 22, 2019 Time Seen by Provider: 17:09 Initial Comments 33-year-old male presents with right lower leg pain. Patient was seen here 4 days ago following twisting his knee. At that time he had a negative x-ray. He did have a midline joint effusion that was noted in both physical exam and on x- ray. Patient comes in today because he "still has pain in his knee and had a "swelling on the mid part of his leg. He is now complaining of pain in his posterior lateral calf. Patient reports she's gotten tramadol but that just doesn't help. Patient reports she has some redness. Patient denies any fevers chills nausea vomiting Allergies and Home Medications Allergies Coded Allergies: No Known Drug Allergies (Unverified , 12/07/18) Home Medications Prednisone 20 Mg Tab, 40 MG PO DAILY Prescribed by: HYUN HARMAN on 07/19/191711 Tramadol HCl 50 Mg Tablet, 50 MG PO Q6H PRN for PAIN-MODERATE (5-7) Prescribed by: HYUN HARMAN on 07/19/191713 Patient Home Medication List Home Medication List Reviewed: Yes Review of Systems Constitutional: No chills Respiratory: no symptoms reported Cardiovascular: no symptoms reported Gastrointestinal: no symptoms reported Musculoskeletal: see HPI Skin: see HPI Past Iwnfxvf-[id number]-Olrufe Hx Past Med/Social Hx: Reviewed Nursing Past Med/Soc Hx Patient Social History Alcohol Beverage of Choice: Beer Type Used: Cigarettes 2nd Hand Smoke Exposure: Yes Recent Foreign Travel: No Contact w/Someone Who Travel: No Recent Hopitalizations: No Immunizations Up To Date Tetanus Booster (TDap): Less than 5yrs PED Vaccines UTD: Yes Seasonal Allergies Seasonal Allergies: No Past Medical History Surgeries: Yes (RIGHT HAND) Orthopedic Respiratory: No Cardiac: No Neurological: Yes Concussion Reproductive Disorders: No Genitourinary: No Gastrointestinal: No Musculoskeletal: Yes (RIGHT SHOULDER AC SEPARATION) Fractures Endocrine: No HEENT: No Cancer: No Psychosocial: Yes ADD/ADHD, Anxiety Integumentary: No Blood Disorders: No Physical Exam Vital Signs Vital Signs - First Documented 07/22/19 17:08 Temp 36.7 Pulse 87 Resp 18 B/P (MAP) 131/82 (98) Pulse Ox 100 Capillary Refill : Height, Weight, BMI Height: 5'10.00" Weight: 165lbs. 0oz. 74.748679ib; 23.00 BMI Method:Stated General Appearance: WD/WN, no apparent distress Neck: non-tender, full range of motion, supple Cardiovascular: normal peripheral pulses, regular rate, rhythm Respiratory: lungs clear, normal breath sounds Gastrointestinal: non tender, soft Legs: bilateral leg non-tender Knees: right knee soft tissue tenderness, right knee other (no obvious deformity, swelling or other physical findings of his previous injury) Procedures/Interventions Suture Size: 4-0 Progress/Results/Core Measures Results/Orders Lab Results Laboratory Tests Test 07/22/19 17:20 Range/Units White Blood Count 14.6 H 4.3-11.0 10^3/uL Red Blood Count 4.92 4.35-5.85 10^6/uL Hemoglobin 16.4 13.3-17.7 G/DL Hematocrit 47 40-54 % Mean Corpuscular Volume 95 80-99 FL Mean Corpuscular Hemoglobin 33 25-34 PG Mean Corpuscular Hemoglobin Concent 35 32-36 G/DL Red Cell Distribution Width 12.0 10.0-14.5 % Platelet Count 236 130-400 10^3/uL Mean Platelet Volume 8.7 7.4-10.4 FL D-Dimer 0.22 0.00-0.49 UG/ML C-Reactive Protein High Sensitivity 2.47 H 0.00-0.50 MG/DL My Orders Orders - SHAFFER,COOKIE L DO Cbc No Diff (07/22/19 17:13) Hs C Reactive Protein (07/22/19 17:13) Fibrin Degradation Products (07/22/19 17:13) Ketorolac Injection (Toradol Injection) (07/22/19 17:23) Orphenadrine Injection (Norflex Injectio (07/22/19 17:23) Vital Signs/I&O 07/22/19 17:08 Temp 36.7 Pulse 87 Resp 18 B/P (MAP) 131/82 (98) Pulse Ox 100 Progress Progress Note : Time: 17:46 Progress Note Patient with negative d-dimer. Symptoms are consistent with a medial knee strain possible meniscus injury. I discussed with patient that he will need to follow- up with his primary care provider or orthopedic surgeon if symptoms do not improve. He can use topical lidocaine, Tylenol ibuprofen and continue uses tramadol. I will also given prescription for a muscle relaxant. He will be discharged home in stable condition Departure Impression Primary Impression: Strain of knee and leg, right Qualified Codes: S86.911D - Strain of unspecified muscle(s) and tendon(s) at lower leg level, right leg, subsequent encounter Disposition: HOME, SELF-CARE Condition: Stable Departure-Patient Inst. Referrals: NO,LOCAL PHYSICIAN (PCP/Family) Primary Care Physician Patient Instructions: Lower Extremity Muscle Strain, Muscle Strain (DC), Knee Sprain (DC) Add. Discharge Instructions: 4% topical lidocaine with menthol as directed on package Tylenol or ibuprofen in addition to your tramadol as needed for pain Follow-up with your primary care provider or orthopedic surgeon if symptoms do not improve or continue to worsen for further evaluation and possible MRI Scripts Cyclobenzaprine HCl (Cyclobenzaprine HCl) 10 Mg Tablet 10 MG PO Q8H PRN for SPASMS, #15 TAB 0 Refills Prov: COOKIE SHAFFER DO 07/22/19 COOKIE SHAFFER DO July 22, 2019 17:12
[2019-07-22] MEDS ORDERED: ORPHENADRINE 60 MG/2 ML (NORFLEX) AMP IM STA (17:23)
[2019-07-22] MEDS ORDERED: KETOROLAC 60 MG/2 ML VIAL IM STA (17:23)
[2019-07-22 17:27] LABS: HEMOGLOBIN 16.4 G/DL (13.3-17.7); MEAN PLATELET VOLUME 8.7 FL (7.4-10.4); WHITE BLOOD COUNT 14.6 10^3/uL (4.3-11.0)
[2019-07-22] MEDS ORDERED: CYCL10TA9 PO (17:51)
[2019-07-22 18:14] VITALS: BP 128/84
== END 2019-07-22 18:11 | disposition home or self-care (01) ==
LOC: EDUNIT# 17:05 → ER 17:06
DX: S86.911D Strain of unspecified muscle(s) and tendon(s) at lower leg level, right leg, subsequent encounter (principal); Z77.22 Contact with and (suspected) exposure to environmental tobacco smoke (acute) (chronic); Z87.820 Personal history of traumatic brain injury; X50.1XXA Overexertion from prolonged static or awkward postures, initial encounter
CPT/HCPCS: 36415; 85027; 85379; 86141; 99284

== ENCOUNTER 2020-03-03 21:04 | Emergency (ER) | payer SELFPAY ==
[~2020-03-03] VITALS: Ht 177.8 cm; Wt 73.9 kg
[~2020-03-03 21:04] MED LIST changes: +CYCL10TA9 PO
[2020-03-03 21:15] VITALS: BP 111/70
--- NOTE | 2020-03-03 21:33 | ED EENT ---
History of Present Illness General Chief Complaint: Laceration Stated Complaint: R BROW LAC Source: patient Exam Limitations: no limitations History of Present Illness Date Seen by Provider: Mar 03, 2020 Time Seen by Provider: 21:15 Initial Comments right eyebrow lac during wrestling. No loc, no headahce no vomiting no confusion tetanus up to date. Timing/Duration: abrupt Severity: moderate Location: eye (R) Associated Symptoms: denies symptoms Allergies and Home Medications Allergies Coded Allergies: No Known Drug Allergies (Unverified , 12/07/18) Home Medications Cyclobenzaprine HCl 10 Mg Tablet, 10 MG PO Q8H PRN for SPASMS Prescribed by: COOKIE SHAFFER on 07/22/191750 Prednisone 20 Mg Tab, 40 MG PO DAILY Prescribed by: HYUN HARMAN on 07/19/191711 Tramadol HCl 50 Mg Tablet, 50 MG PO Q6H PRN for PAIN-MODERATE (5-7) Prescribed by: HYUN HARMAN on 07/19/191713 Patient Home Medication List Home Medication List Reviewed: Yes Review of Systems Review of Systems Constitutional: see HPI Eyes: No Symptoms Reported Ears: No Symptoms Reported Nose: no symptoms reported Mouth: no symptoms reported Throat: no symptoms reported Respiratory: no symptoms reported Cardiovascular: no symptoms reported Musculoskeletal: no symptoms reported Skin: no symptoms reported Neurological: No Symptoms Reported Hematologic/Lymphatic: No Symptoms Reported Immunological/Allergic: no symptoms reported Past Gqubwoa-Odtfow-Nvstqr Hx Patient Social History Alcohol Beverage of Choice: Beer Type Used: Cigarettes 2nd Hand Smoke Exposure: Yes Recent Foreign Travel: No Contact w/Someone Who Travel: No Recent Hopitalizations: No Immunizations Up To Date Tetanus Booster (TDap): Less than 5yrs PED Vaccines UTD: Yes Seasonal Allergies Seasonal Allergies: No Past Medical History Surgeries: Yes (RIGHT HAND) Orthopedic Respiratory: No Cardiac: No Neurological: Yes Concussion Reproductive Disorders: No Genitourinary: No Gastrointestinal: No Musculoskeletal: Yes (RIGHT SHOULDER AC SEPARATION) Fractures Endocrine: No HEENT: No Cancer: No Psychosocial: Yes ADD/ADHD, Anxiety Integumentary: No Blood Disorders: No Physical Exam Height, Weight, BMI Height: 5'10.00" Weight: 165lbs. 0oz. [id number]; 23.00 BMI Method:Stated General Appearance: WD/WN, no apparent distress Eyes: right eye other (2.5cm lac right eyebrow); bilateral eye normal inspection, bilateral eye PERRL, bilateral eye EOMI Ears: bilateral ear auricle normal, bilateral ear canal normal, bilateral ear TM normal Mouth/Throat: normal mouth inspection, pharynx normal Neck: non-tender, full range of motion Respiratory: no respiratory distress, no accessory muscle use Gastrointestinal: normal bowel sounds, non tender, soft Neurologic/Psychiatric: alert, normal mood/affect, oriented x 3 Skin: normal color, warm/dry Procedures/Interventions Wound Location: Face Wound Length (cm): 2.5 Wound's Depth, Shape: linear, sub Q Wound Explored: clean Irrigated w/ Saline (ccs): 60 Anesthesia: 1% Lidocaine Volume Anesthetic (ccs): 2 Suture: Prolene Suture Size: 5-0 Number of Sutures: 1 Layer Closure?: 1 Departure Impression Primary Impression: Eyebrow laceration Qualified Codes: S01.111A - Laceration without foreign body of right eyelid and periocular area, initial encounter Disposition: 01 HOME, SELF-CARE Condition: Stable Departure-Patient Inst. Decision time for Depature: 21:32 Referrals: NO,LOCAL PHYSICIAN (PCP/Family) Primary Care Physician Patient Instructions: Laceration Repair With Stitches (DC) Add. Discharge Instructions: Return to ER to have stitches removed in about 6 days. You can shower starting tonight. Return to ER before then for any concerns. All discharge instructions reviewed with patient and/or family. Voiced understanding. JORGE L GARCIA APRN Mar 03, 2020 21:33
== END 2020-03-03 21:40 | disposition home or self-care (01) ==
LOC: EDUNIT# 21:04 → ER 21:05
DX: S01.111A Laceration without foreign body of right eyelid and periocular area, initial encounter (principal); Z77.22 Contact with and (suspected) exposure to environmental tobacco smoke (acute) (chronic); Z87.820 Personal history of traumatic brain injury; Z79.52 Long term (current) use of systemic steroids; Y93.72 Activity, wrestling